=== PATIENT | female | born 1965 | race Caucasian/White ===

== ENCOUNTER → 2017-11-25 07:04 | Outpatient (CLI) | payer MEDICARE, SELFPAY ==
--- NOTE | 2017-11-25 07:05 | DI.MRI.S_ITS ---
PROCEDURE: MR CERVICAL SPINE WO CON INDICATIONS: left arm shooting pain, numbness, tingling - worsening TECHNIQUE: Noncontrast sagittal T1 spin echo and T2 fast spin echo, sagittal STIR, foraminal oblique sagittal T2 fast spin echo, and axial gradient echo or T2 fast spin echo through the cervical spine. In this patient, coronal T2-weighted images were also performed. COMPARISON: [facility], CT, SOFT TISSUE NECK W CONTRAST, 06/16/2017, 10:30. FINDINGS: Image quality: This examination is limited by involuntary motion artifact. Images are repeated, with some improvement. Alignment and Curvature: S-shaped scoliotic curvature is seen. Bone Marrow: Marrow demonstrates normal overall signal. Spinal Cord: Visualized spinal cord has normal size and signal. No cerebellar tonsillar herniation. Paraspinous Soft Tissues: No paravertebral masses. Prevertebral soft tissues are normal in thickness. C2-C3: Normal appearance. C3-C4: No significant abnormality is seen. C4-C5: Mild loss of disc height and disc signal are seen. A mild degree of generalized disc osteophyte complex is seen. Fltt-gr-hazyodjl facet hypertrophy is seen. Minimal bilateral neural foraminal narrowing is seen. Mild central canal narrowing is seen. C5-C6: Moderate loss of disc height is seen. Loss of disc signal is seen. Moderate disc osteophyte complex is seen, which is eccentric to the right. Wkpm-ec-mkrvfbtn facet hypertrophy is seen. There is at least moderate right-sided and moderate left-sided neural foraminal narrowing seen. C6-C7: Mild to moderate loss of disc height and disc signal are seen. Moderate disc osteophyte complex is seen, which is eccentric to the left. There is moderate left-sided and mild right-sided neural foraminal narrowing seen. Mild central canal narrowing is seen. C7-T1: No significant abnormality is seen. IMPRESSION: Multiple levels of cervical spine degenerative change are seen, which are overall most prominent at the C5-C6 level. Dictated by: Cameron Ordonez M.D. on 11/25/2017 at 9:02 Approved by: Cameron Ordonez M.D. on 11/25/2017 at 9:28
== END ==
PROVIDERS: PCP Family Medicine; Visit Provider Family Medicine
DX: M79.602 Pain in left arm (principal); R20.0 Anesthesia of skin; R20.2 Paresthesia of skin; M50.322 Other cervical disc degeneration at C5-C6 level
CPT/HCPCS: 72141

== ENCOUNTER 2018-01-24 08:11 | Outpatient (CLI) | payer MEDICARE, SELFPAY ==
[2018-01-24] VITALS (9 sets, daily range): BP systolic 102–199; BP diastolic 52–91; PULSE 66–73; RESP 10–18; TEMP 36.1; O2SAT 12–100
--- NOTE | 2018-01-24 08:13 | DI.RAD.S_ITS ---
PROCEDURE: PAIN C/T INTERLAMINAR INJECT INDICATIONS: HNP with LUE paresthesis FINDINGS: Fluoroscopic spot filming was performed to verify placement of spinal needles at the C6-7 level(s), as labeled on the films. Appropriate location(s) of the needle tip(s) was confirmed by injection of iodinated contrast. IMPRESSION: Intraoperative verification of needle placement at the C6-7 level Dictated by: Edmund Alvarado M.D. on 01/24/2018 at 13:13 Approved by: Edmund Alvarado M.D. on 01/24/2018 at 13:13
--- NOTE | 2018-01-24 09:05 | PM.PROC.1 ---
Procedures Date/Time Date of procedure: 01/24/18 Time of procedure: 09:05 General Procedure description: PREOP DIAGNOSIS 1. CERVICAL STENOSIS, 2. CERVICAL HNP WITH UPPER EXTREMITY RADICULAR FEATURES, POST OP DIAGNOSIS 1. CERVICAL STENOSIS, 2. CERVICAL HNP WITH UPPER EXTREMITY RADICULAR FEATURES, PROCEDURES 1. FLUORSCOPICALLY GUIDED CONTRAST CONTROLLED INTERLAMINAR EPIDURAL STEROID INJECTION - C6/7 TL JANKI PHYSICIAN: David Ferreira, DO INDICATIONS Flor is referred by Dr. Saxena for treatment of Cervical HNP with Upper Extremity Paresthesias. FINDINGS Cervical Stenosis due to disc deterioration and nerve root irritation and nerve root irritation DESCRIPTION OF PROCEDURE Fluoroscopically guided, contrast-controlled C6/7 translaminar epidural steroid injection with conscious sedation. Following denial of allergy and review of potential side effects and complications, including, but not necessarily limited to, infection, allergic reaction, local tissue breakdown, temporary as well as permanent nerve injury, stroke, paralysis, and possible , the patient indicated that patient understood and agreed to proceed. An informed consent document was signed by the patient, witnessed by a nurse, and placed in the patient's chart. Additionally, other treatment options including modalities, medications, and physical therapy were reviewed with the patient. After review of previous anaesthesic history and IV conscious sedation the patient was deemed safe to proceed with todays procedure with IV conscious sedation as ASA class II designation. Safety time-out was performed to confirm patient ID, procedure to be performed and site of procedure. IV sedation was accomplished with a combination of 3mg of Versed administered by the RN after DO order, titrated to patient comfort during the course of the procedure while the patient remained responsive to all verbal commands. In the prone position, following sterile prep and drape of the cervical region, the C6/7 translaminar space was identified fluoroscopically. The skin was anesthetized via a 25-gauge 1.5-inch needle with 1% lidocaine solution. At this point, a 25-gauge, 2.5-inch short bevel spinal needle was atraumatically introduced and advanced under fluoroscopic guidance into epidural space at the C6/7 translaminar space. Depth was confirmed on lateral view. Radiological data, including multiple fluoroscopic views of the cervical spine, reveal a spinal needle at the C6/7 translaminar space. Lateral views then show placement of the needle in the epidural space. Subsequent views show contrast material flowing superiorly and inferiorly in the epidural space. DSA fluoroscopy with live contrast injection, once again, confirmed no vascular or intrathecal uptake. At this point, using loss of resistance technique with saline and air, the epidural space was entered. Following negative aspiration, injection of approximately 1.5 cc of Isovue-200 with live fluoroscopy in the AP view confirmed epidural flow in the epidural space without vascular or intrathecal uptake observed. Subsequently, a test dose of 1 cc of 1% lidocaine solution was injected and patient was observed for two minutes without signs or symptoms of complications, including abdominal pain, shortness of breath, bilateral upper or lower extremity weakness, nausea and vomiting, prior to steroid injection. At this point, 3 cc or 30 mg of dexamethasone was then injected without incident. The patient tolerated the procedure well without signs or symptoms of complications prior to being transferred to the recovery area for further monitoring, The patient was then transferred to the recovery area where they were observed for an appropriate period of time after the injection. The patient reported a VAS score of 6 prior to the procedure and a post-procedure VAS of 0. Total Fluoroscopy Time: 37.0 seconds Total Conscious Time: 24min POST OP INSTRUCTIONS The patient was provided a Pain Log to continue to record their response to the target-specific procedure prior to follow-up visit with the referring provider. Additionally, specific post-injection care instructions and a contact number to our office were provided if concerns arise regarding possible complications associated with the procedure are suspected. David Ferreira, Complications: none
[2018-01-24] MEDS: IOPAMIDOL 15 ML VIAL 3 ML INJ (09:21)
[2018-01-24] MEDS: DEXAMETHASONE 10 MG/ML VIAL 30 MG INJ (09:22)
[2018-01-24] MEDS: LIDOCAINE 1% 30 ML INJ INJ (09:22)
[2018-01-24] MEDS: MIDAZOLAM 5 MG/5 ML VIAL IV (09:22)
--- NOTE | 2018-01-25 18:07 | PC.NURSE ---
Follow up call post procedure. left message as pt was not home or not answering.
== END 2018-01-24 10:19 | disposition home or self-care (01) ==
PROVIDERS: Family Provider Family Medicine; PCP Family Medicine; Visit Provider Physical Medicine & Rehabilitation
DX: M48.02 Spinal stenosis, cervical region (principal); M50.123 Cervical disc disorder at C6-C7 level with radiculopathy; M47.22 Other spondylosis with radiculopathy, cervical region
CPT/HCPCS: 62321; 99152; J1040; J1100; J2250

== ENCOUNTER → 2018-08-09 10:39 | Outpatient (CLI) | payer MEDICARE, SELFPAY ==
[2018-08-09 12:12] LABS: Add Manual Diff / Slide Review NO; Basophils Absolute Auto 0 /uL (0-100); Basophils Percent Auto 1.5 % (0-2); Eosinophils Absolute Auto 100 /uL (0-450); Eosinophils Percent Auto 2.4 % (2-4); Hematocrit 37.4 % (36-46); Hemoglobin 12.5 g/dL (12.0-16.0); Lymphocytes Absolute Auto 300 /uL (1100-4500); Mean Corpuscular HGB Conc 33.4 % (30-36); Mean Corpuscular Hemoglobin 33.1 PG (26-34); Mean Corpuscular Volume 98.9 fL (80-100); Monocytes Absolute Auto 300 /uL (0-900); Neutrophils Absolute Auto 1700 /uL (1500-7000); Neutrophils Percent Auto 73.1 % (50-75); Platelet Count 216 X10^3/uL (150-400); Red Blood Cell Count 3.78 X10^6/uL (4.0-5.2); Red Cell Distribution Width 14.2 % (11.6-14.8); White Blood Cell Count 2.3 X10^3/uL (4.5-11.0)
[2018-08-09 12:38] LABS: Alanine Aminotransferase 28 IU/L (9-52); Albumin 4.4 g/dL (3.5-5.0); Albumin Globulin Ratio 1.5 (1.0-2.8); Alkaline Phosphatase 105 U/L (38-126); Aspartate Aminotransferase 24 IU/L (14-36); BUN Creatinine Ratio 33.3 (6-22); Bilirubin Total 0.3 mg/dL (0.2-1.3); Blood Urea Nitrogen 20 mg/dL (7-17); Carbon Dioxide 28 mmol/L (22-32); Chloride 102 mmol/L (98-107); Cholesterol 227 mg/dL (140-199); Estimated Glomerular Filt Rate > 60.0 mL/min (>60); Glucose 84 mg/dL (70-100); HDL Cholesterol 85 mg/dL (40-60); HEMOLYSIS < 15 (0-50); LDL Cholesterol Calculated 125 mg/dL (<100); Potassium 4.1 mmol/L (3.4-5.1); Sodium 139 mmol/L (137-145); Total Protein 7.4 g/dL (6.3-8.2); Triglycerides 87 mg/dL (35-150)
== END ==
PROVIDERS: PCP Family Medicine; Visit Provider Family Medicine
DX: Z13.220 Encounter for screening for lipoid disorders (principal); Z85.850 Personal history of malignant neoplasm of thyroid; Z86.69 Personal history of other diseases of the nervous system and sense organs
CPT/HCPCS: 36415; 80053; 80061; 84443; 85025

== ENCOUNTER → 2018-08-16 09:19 | Outpatient (CLI) | payer MEDICARE, SELFPAY ==
[2018-08-16 09:43] LABS: Appearance Urine UA CLEAR; Bilirubin Urine UA NEGATIVE (NEGATIVE); Color Urine UA YELLOW; Glucose Urine UA NEGATIVE (Negative); Ketones Urine UA NEGATIVE (NEGATIVE); Leukocyte Esterase Urine UA NEGATIVE (NEGATIVE); Nitrite Urine UA NEGATIVE (Negative); Occult Blood Urine UA NEGATIVE (Negative); Protein Urine UA NEGATIVE (Negative); Specific Gravity Urine UA 1.025 (1.000-1.035); Urobilinogen Urine UA 0.2 E.U./dL (0.2); pH Urine UA 5.5 (4.5-8.0)
[2018-08-16 10:33] LABS: Bacteria Urine Few (2-10); RBC Urine 0-1/HPF (0-5/HPF); Squamous Epithelial Cell Urine 1-5 /HPF; WBC Urine 0-1/HPF (0-5/HPF)
[2018-08-16 10:34] LABS: Culture Indicated Urine Cult Not Indicated
[2018-08-16 10:41] LABS: Hemoglobin A1C% w Est Avg Glu 4.8 % (4.0-6.0)
== END ==
PROVIDERS: PCP Family Medicine; Visit Provider Orthopaedic Surgery
DX: N39.9 Disorder of urinary system, unspecified (principal); Z13.1 Encounter for screening for diabetes mellitus; Z01.818 Encounter for other preprocedural examination; Z01.812 Encounter for preprocedural laboratory examination
CPT/HCPCS: 36415; 81001; 83036; 93005; 93010

== ENCOUNTER 2018-10-19 05:05 | Inpatient (IN) | payer MEDICARE, SELFPAY ==
[2018-10-09 12:56] VITALS: BMI 29.0
[2018-10-19] VITALS (12 sets, daily range): BP systolic 83–129; BP diastolic 45–81; PULSE 66–77; RESP 9–19; TEMP 36.2–37; O2SAT 92–100; BMI 28.4
--- NOTE | 2018-10-19 | DI.RAD.S_ITS ---
PROCEDURE: XR HIP W PEL IF DONE RT 2V INDICATIONS: POST OPERATIVE TOTAL RIGHT HIP TECHNIQUE: AP pelvis and lateral view of the right hip acquired. COMPARISON: [facility], CR, [id number] W PEL IF PERFORMED, 11/04/2015, 12:14. FINDINGS: Bones: Patient is status post right hip arthroplasty, with hardware components in expected positions. The hip joint appears congruent. The visualized bony structures appear intact. Soft tissues: Overlying postoperative changes are noted. No suspicious soft tissue densities. IMPRESSION: Expected postoperative appearance Dictated by: Dimas Coronado M.D. on 10/19/2018 at 13:00 Approved by: Dimas Coronado M.D. on 10/19/2018 at 13:01
--- NOTE | 2018-10-19 06:00 | DI.RAD.S_ITS ---
PROCEDURE: XR PELVIS 1-2V INDICATIONS: right interoperative hip TECHNIQUE: Intra-operative view of the pelvis and hip acquired. COMPARISON: None. FINDINGS: Bones: Intraoperative devices prior to placement of arthroplasty prostheses are in expected positions. No fractures or suspicious bony lesions. Soft tissues: Overlying surgical retractors are present, along with other intraoperative changes. IMPRESSION: Expected alignment of hip prosthesis. Dictated by: Kelly Weldon M.D. on 10/19/2018 at 13:41 Approved by: Kelly Weldon M.D. on 10/19/2018 at 13:41
[2018-10-19] MEDS: ACETAMINOPHEN 325 MG TABLET 975 MG PO ×3 (06:53→20:24)
[2018-10-19] MEDS: PREGABALIN 75 MG CAPSULE PO (06:53)
[2018-10-19] MEDS: CELECOXIB 200 MG CAPSULE PO (06:53)
[2018-10-19] MEDS: LACTATED RINGERS 1,000 ML 42 ML IV ×2 (07:15→11:47)
[2018-10-19] MEDS: VANCOMYCIN 1,000 MG/200 ML FROZ.PIGGY 200 MG IV (07:18)
--- NOTE | 2018-10-19 07:47 | SUR.PREOP ---
pt reports she tripped on the sidewalk this morning prior to arriving for surgery. pt reports she fell onto her bottom and reports no injury. This RN observed pt and no bruising or abrasion noted on her bottom. Reported this to MD Araiza.
--- NOTE | 2018-10-19 07:52 | PM.PREOP ---
Pre-operative Note Interval Note History & Physical reviewed/Exam performed by Physician: Yes Changes to H&P: Yes
--- NOTE | 2018-10-19 07:53 | PM.OP.1 ---
Operative Date/Time/Diagnoses Date of procedure: 10/19/18 Time of procedure: 07:53 Pre-op diagnosis: right hip OA Post-op diagnosis: same Procedure & Clinicians Procedure: right total hip arthroplasty Same procedure as scheduled: Yes Indications: The patient has had progressively worsening right hip pain with radiographic changes consistent with arthritis. Non-operative management has failed and the patient has requested total hip replacement. The risks, benefits and alternatives to surgery were discussed with the patient prior to proceeding. Risks discussed included, but were not limited to, failure to relieve pain, leg length discrepancy, dislocation, stiffness, infection, nerve damage, deep venous thrombosis, pulmonary embolism, stroke, coma, heart attack, permanent paralysis and , as well as the potential need for eventual revision of the prosthetic. Surgeon: Wendy Eric Baler Operator: Lea Strickland Anesthesia Type: General and Spinal Operative Notes Findings: severe right hip OA, adequate stability, fairly flat acetabular but good stability with cup positioning Closure Type: primary Specimen(s): none sent Prosthetic devices, grafts, tissues, transplants, or devices: [employer]hew 58 mm R3 cup, 16.5 x 20 screw, 36+ 0 head, size 7 standard offset anthology Applied: catheter and drain(s) Estimated Blood Loss (mL): 250 Blood products transfused: none Procedure in detail: The patient was seen in the pre-operative area, where the patient identified the right hip as the operative site and this was marked with my initials. The patient received pre-operative antibiotics and was taken to the operating room and placed on the operative table in the left lateral decubitus position after satisfactory anesthesia. A multimedia services manager out was performed. The right leg was prepared from the ankle to the iliac crest with ChloroPrep in the usual fashion and draped through sterile drapes. The hip was approached through an approximately 20 cm incision centered over the greater trochanter and curving gently posteriorly as it went proximally. This was carried sharply to the fascia thong, which was divided and retracted with a self retaining retractor. The trochanteric bursa was excised with care being taken to avoid the sciatic nerve, which was identified and protected throughout the case. The short external rotators were incised and the capsulomuscular flap was raised and tagged for later repair. The hip was dislocated, and a femoral neck osteotomy performed approximately 15 mm above the lesser trochanter. Retractors were placed around the femur. The canal was opened with a box cutting osteotome, followed by a T handled reamer and a lateralizing reamer. The chili pepper broach was then used, followed by sequential broaching until there was good stability of the broach in the femur. Retractors were placed to expose the acetabulum. The labrum and central soft tissues were removed. Reaming was performed initially going up in 2 mm increments, then 1 mm increments until good bite was obtained with an odd sized reamer. The cup 1 mm larger than the last reamer was then inserted using the appropriate anteversion guides. She had a fairly flat acetabulum with some uncoverage laterally and posteriorly. acetabular fixation was supplemented with a screw. A trial neutral liner was placed. The broach was placed in the canal. A trial head and neck were then placed and the hip relocated and checked for leg length and stability. An intraoperative film confirmed the component position and no evidence of fracture. The patient was stable in the position of sleep, of squatting, and could be put through a range of motion with 45 degrees internal rotation without dislocation. At 90 degrees flexion, internal rotation to 70 was possible before dislocation. This was felt to be satisfactory and the appropriate components were opened, and the trials were removed. The acetabular liner was impacted into position. The final stem was then impacted into the prepared femoral canal. A brief Betadine soak was performed while trialing with head options. The hip was meticulously irrigated with normal saline. Finally the femoral head was impacted onto the stem. The acetabulum was cleared of all material and the hip relocated one final time. The capsulomuscular flap was then repaired to the greater trochanter though an awl hole using the tag sutures. The short external rotators were repaired with a nonabsorbable suture. A deep drain was placed and brought out anteriorly. The fascia thong was closed with Vicryl. The subcutaneous layer was closed with barbed sutures and heena. An Aquacel Ag dressing was applied and the patient was taken to recovery having tolerated the procedure well. Complications: none Condition: stable Disposition: Acute Care Plan for aftercare: The patient will be maintained on a standard total hip replacement protocol with weight bearing as tolerated and posterior hip precautions. The patient will receive Aspirin and sequential compression devices for DVT prophylaxis. The patient will be discharged home when safe for the home environment.
[2018-10-19] MEDS: CEFAZOLIN 2 GM/100 ML FROZ.PIGGY IV ×2 (08:20→16:01)
--- NOTE | 2018-10-19 09:00 | SUR.OPER ---
Lateral on padded OR bed. Gel axillary roll. Arms secured on padded armboard with pillow supporting top arm. Padded hip positioner braces x4 - anterior and posterior chest and pelvis. Additional gel pad used anterior pelvis. Gel pad under bottom leg from knee to foot and secured with tape over sheet.
[2018-10-19] MEDS: BUPIVACAINE 0.25% W/ EPI 30 ML VIAL 60 ML INJ (09:08)
[2018-10-19] MEDS: BUPIVACAINE LIPOSOME 266 MG/20 ML VIAL INJ (09:08)
[2018-10-19] MEDS: EPINEPHrine 1 MG/ML AMPUL IRR (09:14)
[2018-10-19] MEDS: POVIDONE-IODINE 15 ML, SODIUM CHLORIDE 0.9% 250 ML TOP (09:14)
--- NOTE | 2018-10-19 11:19 | SUR.PHASEI ---
griselda dressing in place and functioning with green light. hemavac drain intact.
--- NOTE | 2018-10-19 11:21 | SUR.PHASEI ---
bedside report given to Grant Flowers RN and transferred care of pt to Kristie at this time.
[2018-10-19] MEDS: LACTATED RINGERS 1,000 ML 125 ML IV ×2 (12:26→20:38)
[2018-10-19] MEDS: carBAMazepine 200 MG TABLET 400 MG PO (12:32)
[2018-10-19] MEDS: OXYCODONE IR 5 MG TABLET PO ×2 (13:33→20:31)
--- NOTE | 2018-10-19 14:45 | PT.IIE ---
Current Diagnoses Unilateral primary osteoarthritis, right hip (10/19/18) Surgery Performed Operation Date: 10/19/18 07:45 Actual Procedures p Total Hip Arthroplasty Posterior(Right) - Wendy Eric MD Surgical History (Last Updated 10/09/18 @ 13:27 by Kimberly Oneill, RN) H/O right wrist surgery (Acute ~2012) History of arthroplasty of right knee (Acute) History of total left hip arthroplasty (Acute) Hx of partial adrenalectomy (Acute ~12/2005) S/P colon resection (Acute) Status post delivery Medical History (Last Updated 10/09/18 @ 13:41 by Kimberly Oneill, RN) Leukocytopenia, unspecified (Acute) Meningitis (Acute) Sigmoid volvulus (Acute) Thyroid cancer (Acute) Physical Therapy Inpatient Evaluation/Re-Eval M1 PT/OT-IP Prior Functional Status Start: 10/19/18 16:54 Freq: NEEDED Status: Active Protocol: Document 10/19/18 14:45 AB (Rec: 10/19/18 17:07 AB [id number]) Medical Review Prior Functional Status Medical History Reviewed Yes Communication able to make needs known Mobility and Gait pt stated that she is modified independent with all mobilities and ambulation without AD Social History Household Members spouse family Living Arrangements House Number of Floors (Floors) One Floor Number of Stairs To Enter/Railing? pt with stay at her sister's house and he sister will assist her because her spouse goes to work. home information is regarding pt's sister's house: 2 steps to enter without rails Home Environment Standard Height Toilet Tub/Shower Home Equipment Front Wheel Walker Quad Cane Shower Seat with Backrest M2 PT-IP Current Condition Start: 10/19/18 16:54 Freq: NEEDED Status: Active Protocol: Document 10/19/18 14:45 AB (Rec: 10/19/18 17:07 AB [id number]) Physical Therapy Current Condition Current Condition Evaluation Date 10/19/18 Treatment Diagnosis s/p R TIFFANIE posterior approach; difficulty in walking Onset Date 10/19/18 Precautions Posterior Hip Precautions No Hip Flexion > 90 degrees No Hip Internal Rotation No Hip Adduction Weight Bearing Status Weight Bearing Status Weight Bear as Tolerated M3 PT-IP Subjective Start: 10/19/18 16:54 Freq: NEEDED Status: Active Protocol: Document 10/19/18 14:45 AB (Rec: 10/19/18 17:07 AB [id number]) Subjective Physical Therapy Visit Type Type Initial Evaluation Visit Start Time 14:45 Visit Stop Time 15:32 Total Visit Minutes 47 Number of EMERGENCY CARE ATTENDANT Visits 0 Physical Therapy Visit Comments Patient Comments per nurse: pt wants to get up Therapy Pain Assessment Pain When Pain Assessed At Rest Pain Present Pain Present Pain Reported Location Right Hip Intensity 5 Scale Used Numeric (1 - 10) Pain Management Techniques Apply Cold Re-positioning Timing of Activity with Medications M4 PT-IP Mobility and Gait Start: 10/19/18 16:54 Freq: NEEDED Status: Active Protocol: Document 10/19/18 14:45 AB (Rec: 10/19/18 17:07 AB [id number]) PT-Bed Mobility Assessment Supine to Sit Supine to Sit Standby Assistance Scooting Scooting to Edge of Bed Standby Assistance PT-Transfer Assessment Sit to and From Stand Sit to and from Stand Minimal Assistance 1 Person Assistance Use of Upper Extremities Equipment Transfer Assistive Device Gait Belt Front Wheeled Walker Orthotic/Prosthetic Devices or Brace: No Transfers Transfer Destination Chair Transfer Technique pt ambulated to the chair Transfer Ability Level of Assist Minimal Assistance 1 Person Assistance Use of Upper Extremities Comments Mobility Comments pt with decrease safety awareness and needs frequent cues for instruction and to maintain R hip posterior precautions. Gait Assessment Gait Gait Assistance Required: Minimum Assistance Distance (Feet) 15 Able to Maintain Weight Bearing Status Yes During Gait Assistive Devices Assistive Device Gait Belt Front Wheeled Walker Orthotic/Prosthetic Devices or Brace: No Gait Deviations General Gait Pattern Antalgic Decreased Stride Length Decreased Feet Clearance Factors Limiting Gait Function Factors Limiting Gait Function Decreased Activity Tolerance Decreased Strength Pain Poor Balance Poor Safety Awareness PT-Balance Assessment Sitting Balance and Reactions Static Sitting Balance Ability Good Dynamic Sitting Balance Ability Good Standing Balance and Reactions Static Standing Balance Ability Fair Dynamic Standing Balance Ability Fair Device Used FWW M5 PT-IP Objective Assessments Start: 10/19/18 16:54 Freq: NEEDED Status: Active Protocol: Document 10/19/18 14:45 AB (Rec: 10/19/18 17:07 AB [id number]) Orientation Orientation/Cognition Level of Alertness Alert Safety Awareness Decreased Safety Awareness Memory Description Short Term Impaired Assisted Impaired Gross Range of Motion Lower Extremity ROM Assessment Within Functional Limits Strength Lower Extremity Strength Assessment Right Impaired Hip 4-/5 Knee 4-/5 Sensation Assessment Sensation Gross Sensation WNL Muscle Tone Muscle Tone WNL Yes M6 PT-IP Treatment Start: 10/19/18 16:54 Freq: NEEDED Status: Active Protocol: Document 10/19/18 14:45 AB (Rec: 10/19/18 17:07 AB [id number]) Physical Therapy Treatment Education Education Provided Precautions Weight Bearing Status Post-Op Packet Safety Other Treatments Other Treatment Performed educated pt regarding R posterior hip precautions and continues to require assistance to recall. M7 PT-IP Assessment and Plan Start: 10/19/18 16:54 Freq: NEEDED Status: Active Protocol: Document 10/19/18 14:45 AB (Rec: 10/19/18 17:07 AB [id number]) PT Summary Assessment and Plan Potential Rehabilitation Potential Fair Status of Condition at Evaluation Stable Summary Impairments Pain ROM Strength Balance Coordination Sensation Tone Cognition Bed Mobility Transfers Gait Activity Tolerance Assessment Summary pt requiring min A with mobility and plans to go home with her sister to assist her. will conduct caregiver training when appropriate and also complete stair climbing training. d/c plan depending if caregiver will be able to provide necessary assistance and also pt be able to complete stairs. Goals Bed Mobility Goal Independent Transfer Goal Standby Assistance Front Wheeled Walker Gait Goal Standby Assistance Front Wheel Walker Gait Distance 150 Other Goals up/down 2 steps using quad cane/DEPLOYMENT ENGINEER Days to Meet Goals 3 Frequency of Treatment Frequency Of Treatment Twice a Day Treatment Plan Physical Therapy Treatment Plan Bed Mobility Training Transfer Training Gait Training Therapeutic Exercise Balance Retraining Post Op Education Discharge Planning Hot or Cold Pack Neuromuscular Re-ed Coordination Retraining Manual Therapy Recommendations To Nursing Amount of Assist Needed 1 Person Assist Discharge Recommendations PT Discharge Recommendations Home with 10/01 Assist Outpatient PT
--- NOTE | 2018-10-19 15:17 | PC.ADMIT ---
[address] [place] [address] Admission Note: The patient,Flor De Leon,53 y/o, was given written information regarding hospital policies, unit procedures and contact persons. Patient's smoking status: Former smoker. Vital Signs - 8 hr 10/19/18 11:11 10/19/18 11:16 10/19/18 11:21 Temperature 97.1 F L Pulse Rate 71 73 71 Respiratory Rate 9 L 11 L 10 L Blood Pressure 101/62 98/67 83/45 L Pulse Oximetry 100 100 100 10/19/18 11:26 10/19/18 11:36 10/19/18 11:46 Temperature 98.6 F 98.6 F Pulse Rate 68 66 66 Respiratory Rate 12 12 13 Blood Pressure 106/68 109/61 104/63 Pulse Oximetry 99 100 100 10/19/18 12:00 10/19/18 12:14 10/19/18 12:30 Temperature 98.0 F 98.0 F Pulse Rate 77 72 Respiratory Rate 14 15 Blood Pressure 122/72 102/57 L Pulse Oximetry 92 96 96 PATIENT ADMITTED TO [address] EARLIER THIS AFTERNOON. DENIED PAIN, HV PATENT AND COMPRESSED, PATRICK DRSG CDI AND FUNCTIONING. NO N/V. PATIENT ATE LUNCH, TOLERATED WELL. AT APPROX 1430 PATIENT BECAME VERY RESTLESS, WANTED OUT OF BED. ADMITTED SHE MAY BE FEELING ANXIOUS. I;M JUST DETERMINED TO GET OUT OF THIS BED. SAT 100% ON RA. CALLED PHYSICAL THERAPY WHO ARE IN W/ PATIENT AT THIS TIME. REPORT GIVEN TO SHENA QUAN RN.
[2018-10-19] MEDS: carBAMazepine 200 MG TABLET 600 MG PO (20:23)
[2018-10-19] MEDS: DOCUSATE 100 MG CAPSULE PO (20:24)
[2018-10-19] MEDS: ASPIRIN EC 81 MG TABLET PO (20:24)
[2018-10-19] MEDS: LORazepam 0.5 MG TABLET 0.25 MG PO (20:35)
[2018-10-20 00:15] VITALS: BP 113/65; PULSE 75; RESP 16; TEMP 36.8; O2SAT 98
[2018-10-20] MEDS: CEFAZOLIN 2 GM/100 ML FROZ.PIGGY IV (00:25)
[2018-10-20] MEDS: OXYCODONE IR 5 MG TABLET PO ×3 (00:32→08:19)
[2018-10-20 05:13] VITALS: BP 133/61; PULSE 79; RESP 18; TEMP 36.6; O2SAT 98
[2018-10-20 07:30] VITALS: BP 111/72; PULSE 80; RESP 17; TEMP 36.6; O2SAT 99
--- NOTE | 2018-10-20 08:01 | PM.DS.1 ---
History of Present Illness Date Patient Seen: 10/20/18 Chief complaint: [id number] Narrative: Patient seen bedside status post right total hip arthroplasty by Dr. Eric postop day 1. Patient is doing well, pain is well controlled. She would like to go home today. Discharge Providers Date of admission: 10/19/18 05:05 Discharge Date: 10/20/18 Primary care physician: Zachariah Saxena MD Consults: 10/19/18 06:00 Consult to Anesthesiology Routine Comment: Consulting Provider: Anesthesiologist Reason for consultation: Regional block for post operative pain control Has provider been notified: Yes 10/19/18 12:07 Consult to Discharge Planning Routine Comment: Consult to Physical Therapy Evaluate & Treat Comment: Physician Instructions: post op TIFFANIE protocol Consult to Respiratory Therapy Evaluate & Treat Comment: Physician Instructions: Evaluate and treat Discharge provider: Lea Strickland PA-C Summary Discharge Diagnosis: Right hip osteoarthritis Hospital Course: Patient admitted to the hospital status post right posterior total hip arthroplasty by Dr. Eric on 10/19/2018. Patient tolerated the procedure well with no major complications. They were transferred to the acute care floor where they were placed on the standard joint replacement pathway and protocol. They were seen by physical therapy who recommended that they be discharged home. They were stable and ready for discharge on 10/20/2018 Status at Discharge Cognitive/behavioral status at discharge: oriented Functional status at discharge: uses cane/walker Overall status at discharge: patient is progressing back to baseline Time Spent with Patient Less than 30 minutes Exam Vital Signs (past 8 hours): - 10/20/18 00:15 10/20/18 05:13 Temperature 98.3 F 97.9 F Pulse Rate 75 79 Respiratory Rate 16 18 Blood Pressure 113/65 133/61 Pulse Oximetry 98 98 Oxygen Delivery Method Room Air Oxygen Flow Rate 0 Narrative Exam Narrative: Well-developed, well-nourished, no acute distress. Alert and oriented to person, place, and time. Dressing on operative hip is clean, dry, and intact with no signs of drainage. Minimal erythema and generalized swelling around the surgical site. Neurovascularly intact in the operative extremity with a soft and compressible calf. Range of motion of the operative ankle intact. Objective Labs Result Diagrams: 10/20/18 07:46 Discharge Plan Discharge Plan Patient Disposition: Home Discharge Med Rec/Prescriptions Prescriptions: New acetaminophen 325 mg Tablet 975 mg PO TID Qty: 0 RF: 0 docusate sodium 100 mg Capsule 100 mg PO BID Qty: 0 RF: 0 oxycodone 5 mg Tablet 5 mg PO Q4-6H PRN (Reason: Pain, Moderate (4-6)) Qty: 0 RF: 0 Continued levothyroxine 150 mcg tablet 150 mcg PO DAILY Qty: 90 RF: 3 carbamazepine 200 mg tablet See Rx Instructions PO .COMPLEX Qty: 210 RF: 0 aspirin 325 mg tablet 325 mg PO DAILY RF: 0 barbara (Zingiber officinalis) 550 mg capsule 550 mg PO DAILY RF: 0 lorazepam 0.5 mg tablet See Rx Instructions .ROUTE .COMPLEX Qty: 30 RF: 0 methylprednisolone acetate [Depo-Medrol] 80 mg/mL suspension 80 mg IM ONCE Qty: 1 RF: 0 celecoxib [Celebrex] 200 mg capsule 200 mg PO DAILY Qty: 90 RF: 2 Follow up/Referrals: Wendy Eric MD [Physician] - (Follow up in 5-7 days at your previously scheduled post-op appointment.) Provider Discharge Instructions Diet: Diet as Tolerated Activity: Weight bearing as tolerated follow-up posterior hip precautions, use walker until cleared by the physical therapy Cold/Heat Therapy: Apply ice to affected area for 20 minutes at a time at least hourly while awake. Other treatments: Please refer to [facility] path book for any other questions and concerns Skin/Wound/Dressing Care Report to your healthcare provider any signs of infection, such as:: chills, fever, night sweats, increased pain and unusual drainage Dressing: Keep dressing clean, dry, and intact. May shower with it in place but no soaking. Visit Report/Discharge Packet Instructions: DI for Hip Replacement Stand Alone Forms: Surgery Discharge Discharge Data Primary Care Provider: Zachariah Saxena Attending Provider: Wendy Eric Admit Date/Time: 10/19/18 05:05 Quality VTE Deep Vein Thrombosis/Pulmonary Embolism Present on Admission: No
[2018-10-20] MEDS: LEVOTHYROXINE 150 MCG TABLET PO (08:17)
[2018-10-20] MEDS: ASPIRIN EC 81 MG TABLET PO (08:17)
[2018-10-20] MEDS: DOCUSATE 100 MG CAPSULE PO (08:18)
[2018-10-20] MEDS: carBAMazepine 200 MG TABLET 400 MG PO (08:18)
[2018-10-20] MEDS: ACETAMINOPHEN 325 MG TABLET 975 MG PO (08:18)
[2018-10-20] MEDS: CELECOXIB 200 MG CAPSULE PO (08:19)
[2018-10-20 08:24] LABS: Hematocrit 33.4 % (36-46); Hemoglobin 11.5 g/dL (12.0-16.0)
--- NOTE | 2018-10-20 10:10 | PT.IPTN ---
Current Diagnoses Unilateral primary osteoarthritis, right hip (10/19/18) Surgery Performed Operation Date: 10/19/18 07:45 Actual Procedures p Total Hip Arthroplasty Posterior(Right) - Wendy Eric MD Physical Therapy Treatment Note M2 PT-IP Current Condition Start: 10/19/18 16:54 Freq: NEEDED Status: Active Protocol: Document 10/19/18 14:45 AB (Rec: 10/19/18 17:07 AB [id number]) Physical Therapy Current Condition Current Condition Evaluation Date 10/19/18 Treatment Diagnosis s/p R TIFFANIE posterior approach; difficulty in walking Onset Date 10/19/18 Precautions Posterior Hip Precautions No Hip Flexion > 90 degrees No Hip Internal Rotation No Hip Adduction Weight Bearing Status Weight Bearing Status Weight Bear as Tolerated M3 PT-IP Subjective Start: 10/19/18 16:54 Freq: NEEDED Status: Active Protocol: Document 10/20/18 09:15 LJ (Rec: 10/20/18 10:10 LJ [id number]) Subjective Physical Therapy Visit Type Type Treatment Note Visit Start Time 09:15 Visit Stop Time 09:52 Total Visit Minutes 37 Physical Therapy Visit Comments Patient Comments Pt willing to get up and ambulate Therapy Pain Assessment Pain When Pain Assessed At Rest Pain Present Pain Present Pain Reported M4 PT-IP Mobility and Gait Start: 10/19/18 16:54 Freq: NEEDED Status: Active Protocol: Document 10/20/18 09:15 LJ (Rec: 10/20/18 10:10 LJ [id number]) PT-Bed Mobility Assessment Supine to Sit Supine to Sit Standby Assistance Scooting Scooting to Edge of Bed Standby Assistance PT-Transfer Assessment Sit to and From Stand Sit to and from Stand Standby Assistance Use of Upper Extremities Equipment Transfer Assistive Device Gait Belt Front Wheeled Walker Transfers Transfer Destination Bed Toilet Wheelchair Transfer Technique Stand Step Pivot Transfer Ability Level of Assist Standby Assistance Use of Upper Extremities Comments Mobility Comments Pt SBA for all mobility. Demonstrates adhereance to precautions. Pt moves slowly and cautiously with transfers. Able to get into/out of bed R side indep. Pt transfered from bed to WC to toilet to bed always adhering to precautions. Gait Assessment Gait Gait Assistance Required: Standby Assistance Contact Guard Assist Distance (Feet) 175 Able to Maintain Weight Bearing Status Yes During Gait Assistive Devices Assistive Device Gait Belt Front Wheeled Walker Orthotic/Prosthetic Devices or Brace: No Gait Deviations General Gait Pattern Antalgic Decreased Stride Length Decreased Feet Clearance Factors Limiting Gait Function Factors Limiting Gait Function Decreased Activity Tolerance Decreased Strength Pain Poor Balance Poor Safety Awareness Stair Climbing Assessment Evaluation Level of Assist On Stairs Standby Assistance Contact Guard Assistance Devices Stair Climbing Assistive Devices None Technique/Endurance Stair Climbing Direction Ascend and Descend Stair Climbing Technique Step to Step Number of Steps Climbed 3 Query Text: Stair Climbing Set # Repetitions (reps) 2 Comments Stair Climbing Comments Pt adhered to precautions and demonstrated good mobility on stairs. Understands step-to pattern and RLE placement when turning and ascending/ descending M5 PT-IP Objective Assessments Start: 10/19/18 16:54 Freq: NEEDED Status: Active Protocol: Document 10/19/18 14:45 AB (Rec: 10/19/18 17:07 AB [id number]) Orientation Orientation/Cognition Level of Alertness Alert Safety Awareness Decreased Safety Awareness Memory Description Short Term Impaired Fpc Impaired Gross Range of Motion Lower Extremity ROM Assessment Within Functional Limits Strength Lower Extremity Strength Assessment Right Impaired Hip 4-/5 Knee 4-/5 Sensation Assessment Sensation Gross Sensation WNL Muscle Tone Muscle Tone WNL Yes M6 PT-IP Treatment Start: 10/19/18 16:54 Freq: NEEDED Status: Active Protocol: Document 10/19/18 14:45 AB (Rec: 10/19/18 17:07 AB [id number]) Physical Therapy Treatment Education Education Provided Precautions Weight Bearing Status Post-Op Packet Safety Other Treatments Other Treatment Performed educated pt regarding R posterior hip precautions and continues to require assistance to recall. M7 PT-IP Assessment and Plan Start: 10/19/18 16:54 Freq: NEEDED Status: Active Protocol: Document 10/20/18 09:15 LJ (Rec: 10/20/18 10:10 LJ [id number]) PT Summary Assessment and Plan Potential Rehabilitation Potential Fair Status of Condition at Evaluation Stable Summary Impairments Pain ROM Strength Balance Coordination Sensation Tone Cognition Bed Mobility Transfers Gait Activity Tolerance Assessment Summary Pt demonstrates SBA for bed mobility, transfers, ambulation, and stair use adhering to precautions. Pt also able to recall all precautions. Pt has improved gait distance and is normalizing with weight shifting and heel strike. Step distance also normalizing. Safe use of FWW. Pt is safe to D/C home with assistance. Goals Bed Mobility Goal Independent Transfer Goal Standby Assistance Front Wheeled Walker Gait Goal Standby Assistance Front Wheel Walker Gait Distance 150 Other Goals up/down 2 steps using quad cane/[employer] Days to Meet Goals 3 Frequency of Treatment Frequency Of Treatment Twice a Day Treatment Plan Physical Therapy Treatment Plan Bed Mobility Training Transfer Training Gait Training Therapeutic Exercise Balance Retraining Post Op Education Discharge Planning Hot or Cold Pack Neuromuscular Re-ed Coordination Retraining Manual Therapy Recommendations To Nursing Amount of Assist Needed 1 Person Assist Discharge Recommendations PT Discharge Recommendations Home with 10/01 Assist Outpatient PT
[2018-10-20] MEDS: LORazepam 0.5 MG TABLET 0.25 MG PO (10:41)
--- NOTE | 2018-10-20 13:01 | PC.NURSE ---
LATE ENTRY; IV DC'D INTACT W/ PRESSURE TO HEMOSTASIS PRIOR TO DC HOME W/ SISTER. HV ALSO DC'D INTACT W/ PRESSURE TO HEMOSTASIS PRIOR TO DC HOME. 50CC'S EMPTIED.
--- NOTE | 2018-10-21 08:26 | CM.DPNOTE ---
Late Entry: Pt is a 53 yo female, resident of [place]. Pt was admitted for hip surgery w/Dr Eric and DC home .09.05. PCP: Dr Saxena Payer: Medicare Pt discussed in multi-disciplinary rounds .09.05, therapy team and PA indicated there would be no barriers to pt's safe return home w/outpt PT and family to assist. No needs from this [employer]. Pt returned home as expected. According to PT notes: pt with stay at her sister's house and he sister will assist her because her spouse goes to work. Nicole Astudillo, [employer]
== END 2018-10-20 11:30 | disposition home or self-care (01) | DRG 470 ==
PROVIDERS: Admitting Provider Orthopaedic Surgery; PCP Family Medicine; Visit Provider Orthopaedic Surgery
PROC: 0SR90JZ Replacement of Right Hip Joint with Synthetic Substitute, Open Approach (ICD-10-PCS; CPT 27130; principal; 2018-10-19 07:45)
DX: M16.11 Unilateral primary osteoarthritis, right hip (principal); G40.909 Epilepsy, unspecified, not intractable, without status epilepticus; Z96.642 Presence of left artificial hip joint; Z87.891 Personal history of nicotine dependence
CPT/HCPCS: 36415; 72170; 73502; 85014; 85018; 97116; 97161; 97530; C1776; C9290; J0171; J0690; J1100; J2250; J2405; J2704; J3010; J3370

== ENCOUNTER 2018-10-27 10:19 | Emergency (ER) | payer MEDICARE, SELFPAY ==
[2018-10-19 12:14] VITALS: BMI 28.4
[2018-10-27 10:22] VITALS: BP 128/80; PULSE 85; RESP 18; TEMP 36.6; O2SAT 98
--- NOTE | 2018-10-27 10:35 | DI.US.S_ITS ---
PROCEDURE: US PERIPH VENOUS LOW EXTREM RT INDICATIONS: PAIN, SWELLING RIGHT LOWER EXTREMITY, STATUS POST RIGHT HIP TECHNIQUE: Real-time imaging, as well as color and pulse Doppler interrogation, were performed of the lower extremity deep veins from the inguinal ligament to the popliteal fossa. COMPARISON: None. FINDINGS: The common femoral, femoral and popliteal veins are normally compressible, and free of intraluminal thrombus. Color and pulse Doppler demonstrate normal phasic intraluminal flow. There is normal augmentation response to distal compression maneuver. Mild right inguinal adenopathy. IMPRESSION: Negative for deep vein thrombosis. Dictated by: Angella Henderson M.D. on 10/27/2018 at 11:55 Approved by: Angella Henderson M.D. on 10/27/2018 at 11:55
--- NOTE | 2018-10-27 10:45 | PC.NURSE ---
US tech in room with patient
--- NOTE | 2018-10-27 19:09 | ED_ITS ---
HPI - Extremity Problem General Chief complaint: Extremity Problem,Nontraumatic Stated complaint: 'MEDICAL BOX NOT WORKING' Time Seen by Provider: 10/27/18 10:27 Source: patient and family Mode of arrival: ambulatory Limitations: no limitations History of Present Illness HPI Narrative: 53-year-old female nonsmoker presents with her for evaluation of a malfunctioning orthopedic device. The patient was recently taken to the OR for surgical repair of an arthritic right hip and as part of discharge she was given a small wound device with an external ?brain? period the device was no longer turning on today and after the patient replace the batteries it still did not turn on she presents to the emergency department for evaluation. She did not call the orthopedic office. She denies any fever or chills nor drainage. She denies any worsening pain. On arrival it is noted that she has some swelling of her right lower extremity and though she denies any pain redness or warmth MD Complaint: extremity swelling Location: right Radiation: none Relieving factors: nothing Exacerbating factors: nothing Associated symptoms: denies other symptoms Context: recent surgery/procedure Related Data Home Medications Medication Instructions Recorded Confirmed aspirin 325 mg tablet 325 mg PO DAILY 12/15/17 10/19/18 barbara (Zingiber officinalis) 550 550 mg PO DAILY 12/15/17 10/19/18 mg capsule carbamazepine 400 mg PO BID 10/27/18 10/27/18 carbamazepine 600 mg PO BEDTIME 10/27/18 10/27/18 Previous Rx's Medication Instructions Recorded celecoxib 200 mg capsule 200 mg PO DAILY #90 cap 07/27/18 levothyroxine 150 mcg tablet 150 mcg PO DAILY #90 tab 08/10/18 acetaminophen 975 mg PO TID #0 tab 10/20/18 docusate sodium 100 mg PO BID #0 cap 10/20/18 oxycodone 5 mg PO Q4-6H PRN #0 tab 10/20/18 Allergies Allergy/AdvReac Type Severity Reaction Status Date / Time Influenza Virus Vaccines Allergy Intermediate vomiting Verified 10/27/18 10:27 [INFLUENZA VIRUS VACCINES] morphine [MORPHINE] Allergy Unknown GI UPSET Verified 10/27/18 10:27 Review of Systems Constitutional Denies chills, Denies fever(s), Denies lethargy and Denies weakness Eyes Denies change in vision, Denies eye discharge, Denies irritation and Denies loss of vision ENT Ears, Nose, Mouth, and Throat: Denies change in voice, Denies neck pain and Denies sore throat Cardiovascular Denies chest pain, Denies irregular heart rhythm, Denies lightheadedness, Denies palpitations, Denies dyspnea, Denies dyspnea on exertion and Denies orthopnea Respiratory Denies cough, Denies dyspnea, Denies dyspnea on exertion and Denies wheezing Gastrointestinal Gastrointestinal: Denies abdominal pain, Denies change in bowel habits, Denies diarrhea, Denies nausea and Denies vomiting Genitourinary Denies hematuria, Denies flank pain, Denies urinary incontinence and Denies urinary urgency Musculoskeletal Reports joint swelling, Reports limited range of motion and Denies neck pain Integumentary/Breasts Denies pruritus, Denies erythema, Denies rash and Denies wounds Neurologic Denies confusion, Denies loss of vision and Denies weakness Psychiatric Denies anxiety, Denies confusion, Denies depression, Denies homicidal ideation and Denies suicidal ideation Endocrine Denies palpitations Hematologic/Lymphatic Denies easy bruising Allergic/Immunologic Denies wheezing [facility] Medical History Leukocytopenia, unspecified (Acute) Meningitis (Acute) Sigmoid volvulus (Acute) Thyroid cancer (Acute) Surgical History H/O right wrist surgery (Acute ~2012) History of arthroplasty of right knee (Acute) History of total left hip arthroplasty (Acute) Hx of partial adrenalectomy (Acute ~12/2005) S/P colon resection (Acute) Status post delivery Social History household members: spouse and family Smoking Status: Former smoker Social History household members: spouse and family Smoking Status: Former smoker Exam Narrative Exam Narrative: GEN: AOx3 and in mild distress EYES: Pupils are equal, round, and reactive to light and accommodation. Extraoccular muscles are intact bilaterally. There is no subconjunctival hemorrhage or exudate. CHEST: Lungs are clear to auscultation bilaterally and free of wheezes, rales, or rhonchi. Heart rate is regular rhythm, there are no murmurs, clicks, rubs, or gallops. There is no chest wall tenderness. ABD: Abdomen is soft and nontender. There is no guarding or rebound. Bowel sounds are normal in all 4 quadrants. There is no mass or organomegaly. EXT: Wound dressing is clean with some dried blood. No surrounding erythema or pain. Right lower extremity is notably edematous with 2+ pitting edema but sensation is intact. No pain erythema or warmth motion and sensation intact SKIN: Warm, pink, and dry. No erythema or rash Initial Vital Signs Initial Vital Signs: Vital Signs Temperature 97.8 F 10/27/18 10:22 Pulse Rate 85 10/27/18 10:22 Respiratory Rate 18 10/27/18 10:22 Blood Pressure 128/80 10/27/18 10:22 Pulse Oximetry 98 10/27/18 10:22 Course Orders Ordered: ED Orders 10/27/18 10:35 perip venous low extrem rt Stat Consultations Consultation #1: Dr. Villegas consulted regarding device, he states that they are intended to function only for the first few days. They do not get replaced. It can stay in place, as is until follow up on Tuesday Vital Signs - 8 hr 10/27/18 10:22 Temperature 97.8 F Pulse Rate 85 Respiratory Rate 18 Blood Pressure 128/80 Pulse Oximetry 98 MDM - Extremity (Nontraumatic) Imaging Data Venous US: Radiologist's impression: [place] [id number] Ultrasound Report Signed Patient: Flor De Leon [facility]#: [id number] : 1965Acct:[id number] Age/Sex: 53 / FDate of Service: 10/27/18 Loc: ED Accession Number: [id number] Procedure: perip venous low extrem rt Ordering Provider: Derick Jackson D.O. PROCEDURE: PERIP VENOUS LOW EXTREM RT INDICATIONS: PAIN, SWELLING RIGHT LOWER EXTREMITY, STATUS POST RIGHT HIP TECHNIQUE: Real-time imaging, as well as color and pulse Doppler interrogation, were performed of the lower extremity deep veins from the inguinal ligament to the popliteal fossa. COMPARISON: None. FINDINGS: The common femoral, femoral and popliteal veins are normally compressible, and free of intraluminal thrombus. Color and pulse Doppler demonstrate normal phasic intraluminal flow. There is normal augmentation response to distal compression maneuver. Mild right inguinal adenopathy. IMPRESSION: Negative for deep vein thrombosis. Dictated by: Angella Henderson M.D. on 10/27/2018 at 11:55 [facility] Narrative Medical decision making narrative: 53-year-old female with recent hip surgery presents complaining of a malfunctioning orthopedic wound device. Ortho confirms that it is functioning as intended. Furthermore when noted she has swelling of her right lower extremity a DVT ultrasound ordered which is negative. DVT and infection considered but thought less likely. This swelling is almost surely merely a consequence of a recent surgery and nothing to worry about. Patient given return precautions and verbalizes understanding of these precautions as well as discharge plan and diagnosis Discharge Plan Departure Patient Disposition: Home Clinical Impression: Edema, peripheral Discharge Date/Time: 10/27/18 11:55 Interventions: ED Discharge Assessment Last Done: 10/27/18 11:55 Instructions: DI for Peripheral Edema, Unilateral Activity Restrictions/Additional Instructions: *You have been diagnosed with [unilateral edema of your right leg, there was no DVT noted and no signs of infection. This is likely swelling as a consequence of her surgery.] *What to do: *Take medications as directed *Follow up with your primary care provider in 2-3 days, call for an appointment. Let them know you were seen in the Emergency Department and that we ask that you be seen in follow up *Return to ER if you should have any new, worsening or concerning symptoms Prescriptions: No Action levothyroxine 150 mcg tablet 150 mcg PO DAILY Qty: 90 RF: 3 aspirin 325 mg tablet 325 mg PO DAILY RF: 0 barbara (Zingiber officinalis) 550 mg capsule 550 mg PO DAILY RF: 0 acetaminophen 325 mg Tablet 975 mg PO TID Qty: 0 RF: 0 docusate sodium 100 mg Capsule 100 mg PO BID Qty: 0 RF: 0 oxycodone 5 mg Tablet 5 mg PO Q4-6H PRN (Reason: Pain, Moderate (4-6)) Qty: 0 RF: 0 carbamazepine 200 mg tablet 400 mg PO BID RF: 0 carbamazepine 200 mg tablet 600 mg PO BEDTIME RF: 0 methylprednisolone acetate [Depo-Medrol] 80 mg/mL suspension 80 mg IM ONCE Qty: 1 RF: 0 celecoxib [Celebrex] 200 mg capsule 200 mg PO DAILY Qty: 90 RF: 2 Referrals: Wendy Eric MD [Physician] -
== END 2018-10-27 11:55 | disposition home or self-care (01) ==
PROVIDERS: Emergency Provider Emergency Medicine; PCP Family Medicine
DX: R60.9 Edema, unspecified (principal)
CPT/HCPCS: 93971; 99282; 99283

== ENCOUNTER → 2019-04-24 09:35 | Outpatient (CLI) | payer MEDICARE, SELFPAY ==
[2018-10-19 12:14] VITALS: BMI 28.4
[2019-04-24 11:21] LABS: Vitamin D 25 Hydroxy (D3) 21.7 ng/mL (30.0-100.0)
[2019-04-24 11:23] LABS: Free T4, Direct Thyroxine 0.89 ng/dL (0.78-2.19)
[2019-04-30 13:26] LABS: Carbamazepine Tegretol Level 10.1 mg/L (4.0-12.0)
== END ==
PROVIDERS: PCP Student in an Organized Health Care Education/Training Program; Visit Provider Student in an Organized Health Care Education/Training Program
DX: E03.9 Hypothyroidism, unspecified (principal); Z79.899 Other long term (current) drug therapy; Z86.69 Personal history of other diseases of the nervous system and sense organs; E55.9 Vitamin D deficiency, unspecified; Z85.850 Personal history of malignant neoplasm of thyroid
CPT/HCPCS: 36415; 80156; 82306; 84439; 84443

== ENCOUNTER → 2019-10-08 10:45 | Outpatient (CLI) | payer MEDICARE, SELFPAY ==
[2018-10-19 12:14] VITALS: BMI 28.4
[2019-10-08 13:48] LABS: Free T3, Triiodothyronine Free 3.24 pg/mL (2.77-5.27); Free T4, Direct Thyroxine 0.92 ng/dL (0.78-2.19)
== END ==
PROVIDERS: PCP Student in an Organized Health Care Education/Training Program; Referring Provider Student in an Organized Health Care Education/Training Program; Visit Provider Student in an Organized Health Care Education/Training Program
DX: E03.9 Hypothyroidism, unspecified (principal)
CPT/HCPCS: 36415; 84439; 84443; 84481

== ENCOUNTER → 2019-11-27 10:45 | Outpatient (CLI) | payer MEDICARE, SELFPAY ==
[2018-10-19 12:14] VITALS: BMI 28.4
[2019-11-27 12:20] LABS: Free T3, Triiodothyronine Free 4.92 pg/mL (2.77-5.27); Free T4, Direct Thyroxine 1.44 ng/dL (0.78-2.19)
[2019-11-27 12:34] LABS: Thyroid Stimulating Hormone 1.51 uIU/mL (0.47-4.68)
== END ==
PROVIDERS: PCP Student in an Organized Health Care Education/Training Program; Referring Provider Student in an Organized Health Care Education/Training Program; Visit Provider Student in an Organized Health Care Education/Training Program
DX: E89.0 Postprocedural hypothyroidism (principal); Z85.850 Personal history of malignant neoplasm of thyroid
CPT/HCPCS: 36415; 84439; 84443; 84481

== ENCOUNTER 2020-10-11 09:20 | Emergency (ER) | payer MEDICARE, SELFPAY ==
[2018-10-19 12:14] VITALS: BMI 28.4
[2020-10-11 09:20] VITALS: BP 142/81; PULSE 78; RESP 18; TEMP 36.7; O2SAT 99
--- NOTE | 2020-10-11 09:35 | ED.RECABL ---
HPI - Recheck/Abnormal Lab/Rx General Chief Complaint: Recheck/Abnormal Lab/Rx Stated Complaint: needs carbamazepine rx Time Seen by Provider: 10/11/20 09:28 Source: patient Mode of arrival: Ambulatory Limitations: no limitations History of Present Illness HPI narrative: Patient is a 55-year-old female with history of seizures presenting with need for carbamazepine, a she states that she went to supervisor opening and picking her prescription this morning at her pharmacy however due to a power outage they are closed and she took her last pill last night. She already is having some facial twitching and seizure-like activity. She needs her morning dose and likely a couple more pills. She has no other complaints or issues today. MD complaint: medication refill request Related Data Previous Rx's Medication Instructions Recorded celecoxib 200 mg capsule 200 mg PO DAILY #90 cap 12/19/19 levothyroxine 125 mcg tablet 250 mcg PO DAILY #180 tab 12/31/19 carbamazepine 200 mg tablet See Rx Instructions .ROUTE 06/09/20 .COMPLEX #210 tablet lorazepam 0.5 mg tablet 0.25 mg PO BID #30 tab 08/27/20 carbamazepine 400 mg PO TID #20 tab 10/11/20 Allergies Allergy/AdvReac Type Severity Reaction Status Date / Time Influenza Virus Vaccines Allergy Intermediate vomiting Verified 08/27/20 15:34 [INFLUENZA VIRUS VACCINES] morphine [MORPHINE] Allergy Unknown GI UPSET Verified 08/27/20 15:34 Review of Systems Review of Systems Narrative: GENERAL: Denies chills,fever HEENT: Denies throat pain RESPIRATORY: Denies dyspnea, cough, wheezing CARDIOVASCULAR: Denies chest pain, palpitations GASTROINTESTINAL: Denies nausea, vomiting MUSCULOSKELETAL: Denies extremity pain, injury SKIN: No rash, no laceration, no pruritus NEUROLOGIC: + seizure Denies weakness, dizziness, headache, numbness 8 point review of systems is negative except for those stated above and HPI Patient History Medical History Cerebral palsy Lateral epicondylitis of left elbow Leukocytopenia, unspecified Meningitis Sigmoid volvulus Sprain of right thumb Thyroid cancer Surgical History H/O right wrist surgery (~2012) History of arthroplasty of right knee History of total left hip arthroplasty Hx of partial adrenalectomy (~12/2005) S/P colon resection Status post delivery Status post knee surgery Social History household members: spouse and family Smoking Status: Former smoker Smoking Status: Former smoker alcohol intake frequency: 0-2 drinks per day Substance Use Type: does not use Exam Initial Vital Signs Initial Vital Signs: Vital Signs Temperature 98.1 F 10/11/20 09:20 Pulse Rate 78 10/11/20 09:20 Respiratory Rate 18 10/11/20 09:20 Blood Pressure 142/81 H 10/11/20 09:20 Pulse Oximetry 99 10/11/20 09:20 GENERAL: Well-appearing, well-nourished and in no acute distress. CARDIOVASCULAR: peripheral pulses in tact, cap refill <2 sec RESPIRATORY: No respiratory distress, speaks in full sentences without difficulty EXTREMITIES: Normal range of motion, no clubbing or edema. Neurovascularly intact NEUROLOGICAL: Cranial nerves II through XII grossly intact. Normal gait and speech. She is having some facial twitching but awake and alert SKIN: Warm, dry, no petechiae, no rashes or lesions. Course Orders Ordered: Discontinued Medications Carbamazepine (Carbamazepine 200 Mg Tablet) 400 mg PO NOW ONE Stop: 10/11/20 09:35 Last Admin: 10/11/20 09:41 Dose: 400 mg Documented by: Vital Signs Vital signs: Vital Signs - 8 hr 10/11/20 09:20 Temperature 98.1 F Pulse Rate 78 Respiratory Rate 18 Blood Pressure 142/81 H Pulse Oximetry 99 Discharge Plan Departure Patient Disposition: Home Clinical Impression: Seizure disorder Instructions: DI for Seizure Disorder -- Adult Activity Restrictions/Additional Instructions: *You have been diagnosed with seizure disorder, medication refill *What to do: I am sorry your pharmacy lost power. Please is take prescription to an open pharmacy. Please talk with your PCP about your drug levels they may need to be checked *Continue to take medications as directed Tegretol 400 mg morning and noon and 600 mg at night *Follow up with your primary care provider in 2-3 days *Return to ER if you should have increased seizure activity or any new, worsening or concerning symptoms Prescriptions: New carbamazepine 200 mg tablet 400 mg PO TID Qty: 20 RF: 0 No Action levothyroxine 125 mcg tablet 250 mcg PO DAILY Qty: 180 RF: 3 carbamazepine 200 mg tablet See Rx Instructions .ROUTE .COMPLEX Qty: 210 RF: 5 lorazepam 0.5 mg tablet 0.25 mg PO BID Qty: 30 RF: 5 Hold Instructions: Needs to be seen in clinic celecoxib [Celebrex] 200 mg capsule 200 mg PO DAILY Qty: 90 RF: 2 Referrals: Tano Casillas MD [Primary Care Provider] -
[2020-10-11] MEDS: carBAMazepine 200 MG TABLET 400 MG PO (09:41)
== END 2020-10-11 09:45 | disposition home or self-care (01) ==
PROVIDERS: Emergency Provider Emergency Medicine; PCP Student in an Organized Health Care Education/Training Program
DX: R56.9 Unspecified convulsions (principal)
CPT/HCPCS: 99283

== ENCOUNTER → 2021-07-17 09:57 | Outpatient (CLI) | payer MEDICARE, SELFPAY ==
[2018-10-19 12:14] VITALS: BMI 28.4
[2021-07-17 11:15] LABS: BUN Creatinine Ratio 26.7 (6-22); Blood Urea Nitrogen 16 mg/dL (7-17); Calcium 9.1 mg/dL (8.4-10.2); Carbon Dioxide 28 mmol/L (22-32); Chloride 104 mmol/L (98-107); Estimated Glomerular Filt Rate > 60.0 mL/min (>60); Glucose 86 mg/dL (70-100); Potassium 4.8 mmol/L (3.4-5.1); Sodium 137 mmol/L (137-145)
[2021-07-17 11:18] LABS: HEMOLYSIS 81 (0-50)
[2021-07-17 11:48] LABS: TSH w/ Reflex to FT4 0.71 uIU/mL (0.47-4.68)
== END ==
PROVIDERS: PCP Student in an Organized Health Care Education/Training Program; Referring Provider Student in an Organized Health Care Education/Training Program; Visit Provider Student in an Organized Health Care Education/Training Program
DX: E03.9 Hypothyroidism, unspecified (principal); Z79.899 Other long term (current) drug therapy
CPT/HCPCS: 36415; 80048; 84443

== ENCOUNTER → 2022-04-19 08:48 | Outpatient (CLI) | payer MEDICARE, SELFPAY ==
[2021-12-30 09:20] VITALS: BMI 28.4
--- NOTE | 2022-04-19 08:49 | DI.RAD.S_ITS ---
PROCEDURE: XR ELBOW LT MIN 3V INDICATIONS: left elbow pain hx of fx TECHNIQUE: 3 views of the elbow were acquired. COMPARISON: [facility], , ELBOW 3+ VIEWS LEFT, 06/03/2017, 15:52. FINDINGS: Bones: No fractures or dislocations. No suspicious bony lesions. Arthritic changes are present at the elbow including areas of subchondral sclerosis and periarticular osteophytes. Soft tissues: No elbow joint effusion. No suspicious soft tissue calcifications. IMPRESSION: Prominent arthritic changes. No visualized acute fracture or dislocation. However, if clinical concern and/or pain persist, short interval imaging followup in 7-10 days is recommended, as occult injury cannot be definitively excluded. Dictated by: Jen Clayton M.D. on 04/19/2022 at 9:30 Approved by: Jen Clayton M.D. on 04/19/2022 at 9:32
--- NOTE | 2022-04-19 10:15 | DI.RAD.S_ITS ---
PROCEDURE: XR HAND LT MIN 3V INDICATIONS: left CMC joint pain TECHNIQUE: 3 views of the hand(s) acquired. COMPARISON: [facility], [place], XR WRIST LT MIN 3V, 04/19/2022, 10:24. FINDINGS: Bones: No fractures or dislocations. Carpal bones are normally aligned. No suspicious bony lesions. Prominent radiocarpal as well as 1st CMC arthritic narrowing is present. Diffuse mild IP degenerative narrowing is present. Soft tissues: No suspicious soft tissue calcifications. IMPRESSION: Prominent arthritic change notably at the 1st CMC joint. Dictated by: Jen Clayton M.D. on 04/19/2022 at 11:20 Approved by: Jen Clayton M.D. on 04/19/2022 at 11:20
--- NOTE | 2022-04-19 10:15 | DI.RAD.S_ITS ---
PROCEDURE: XR WRIST LT MIN 3V INDICATIONS: left wrist pain TECHNIQUE: 4 views of the wrist were acquired. COMPARISON: [facility], [place], XR HAND LT MIN 3V, 04/19/2022, 10:24. [facility], [place], WRIST MINIMUM 3 VIEWS RIGHT, 05/17/2012, 17:01. FINDINGS: Bones: No fractures or dislocations. No suspicious bony lesions. Radiocarpal and significant 1st CMC degenerative narrowing is present. Scaphoid view: No visualized fracture. Soft tissues: No suspicious soft tissue calcifications. IMPRESSION: Arthritic changes as above. No visualized acute fracture or dislocation. However, if clinical concern and/or pain persist, short interval imaging followup in 7-10 days is recommended, as occult injury cannot be definitively excluded. Dictated by: Jen Clayton M.D. on 04/19/2022 at 11:19 Approved by: Jen Clayton M.D. on 04/19/2022 at 11:19
== END ==
PROVIDERS: PCP Student in an Organized Health Care Education/Training Program; Referring Provider Physical Medicine & Rehabilitation; Visit Provider Physical Medicine & Rehabilitation
DX: M77.12 Lateral epicondylitis, left elbow (principal); M18.9 Osteoarthritis of first carpometacarpal joint, unspecified; M19.032 Primary osteoarthritis, left wrist; M18.12 Unilateral primary osteoarthritis of first carpometacarpal joint, left hand; G80.1 Spastic diplegic cerebral palsy; M19.122 Post-traumatic osteoarthritis, left elbow
CPT/HCPCS: 73080; 73110; 73130; 99214

== ENCOUNTER → 2022-07-28 15:21 | Outpatient (CLI) | payer MEDICARE, SELFPAY ==
[2021-12-30 09:20] VITALS: BMI 28.4
[2022-07-28 17:33] LABS: BUN Creatinine Ratio 24.6 (6-22); Blood Urea Nitrogen 16 mg/dL (7-17); Calcium 8.8 mg/dL (8.4-10.2); Carbon Dioxide 27 mmol/L (22-32); Chloride 100 mmol/L (98-107); Estimated Glomerular Filt Rate > 60 mL/min (>60); Glucose 79 mg/dL (70-100); HEMOLYSIS < 15 (0-50); Potassium 4.3 mmol/L (3.4-5.1); Sodium 136 mmol/L (137-145)
[2022-07-28 18:03] LABS: TSH w/ Reflex to FT4 4.66 uIU/mL (0.47-4.68)
[2022-07-29 16:29] LABS: Hep C Virus Ab w/Reflex Quant NEGATIVE s/c (NEGATIVE)
== END ==
PROVIDERS: PCP Student in an Organized Health Care Education/Training Program; Referring Provider Student in an Organized Health Care Education/Training Program; Visit Provider Student in an Organized Health Care Education/Training Program
DX: E03.9 Hypothyroidism, unspecified (principal); Z79.1 Long term (current) use of non-steroidal anti-inflammatories (NSAID); Z11.59 Encounter for screening for other viral diseases
CPT/HCPCS: 36415; 80048; 84443; 86803

== ENCOUNTER → 2022-09-13 11:04 | Outpatient (CLI) | payer MEDICARE, SELFPAY ==
[2021-12-30 09:20] VITALS: BMI 28.4
[2022-09-13 12:27] LABS: Erythrocyte Sedimentation Rate 17 MM/HR (0-20)
[2022-09-14 05:01] LABS: C-Reactive Protein Quant 0.6 mg/dL (<1.0); Rheumatoid Factor 9.4 IU/mL (<12.0); Uric Acid 3.5 mg/dL (2.5-6.2)
[2022-09-17 16:43] LABS: ANA Screen, IFA Negative (.)
== END ==
PROVIDERS: PCP Student in an Organized Health Care Education/Training Program; Referring Provider Orthopaedic Surgery; Visit Provider Orthopaedic Surgery
DX: M18.12 Unilateral primary osteoarthritis of first carpometacarpal joint, left hand (principal); M19.032 Primary osteoarthritis, left wrist; M18.9 Osteoarthritis of first carpometacarpal joint, unspecified
CPT/HCPCS: 36415; 84550; 85651; 86038; 86140; 86430

== ENCOUNTER → 2023-06-24 11:49 | Outpatient (CLI) | payer MEDICARE, SELFPAY ==
[2021-12-30 09:20] VITALS: BMI 28.4
[2023-06-24 12:55] LABS: Add Manual Diff / Slide Review NO; Basophils Absolute Auto 0 /uL (0-100); Basophils Percent Auto 1.3 % (0-2); Eosinophils Absolute Auto 100 /uL (0-450); Eosinophils Percent Auto 3.6 % (2-4); Hematocrit 38.1 % (36-46); Hemoglobin 13.1 g/dL (12.0-16.0); Lymphocytes Absolute Auto 400 /uL (1100-4500); Mean Corpuscular HGB Conc 34.3 % (30-36); Mean Corpuscular Hemoglobin 32.4 PG (26-34); Mean Corpuscular Volume 94.4 fL (80-100); Monocytes Absolute Auto 300 /uL (0-900); Monocytes Percent Auto 10.7 % (3-14); Neutrophils Absolute Auto 1600 /uL (1500-7000); Neutrophils Percent Auto 68.4 % (50-75); Platelet Count 244 X10^3/uL (150-400); Red Blood Cell Count 4.03 X10^6/uL (4.0-5.2); Red Cell Distribution Width 13.5 % (11.6-14.8); White Blood Cell Count 2.4 X10^3/uL (4.5-11.0)
[2023-06-24 13:28] LABS: Alanine Aminotransferase 15 IU/L (<35); Albumin Globulin Ratio 1.3 (1.0-2.8); Alkaline Phosphatase 113 U/L (38-126); Aspartate Aminotransferase 22 IU/L (14-36); BUN Creatinine Ratio 27.3 (6-22); Bilirubin Total 0.6 mg/dL (0.2-1.3); Blood Urea Nitrogen 18 mg/dL (7-17); Calcium 9.2 mg/dL (8.4-10.2); Carbon Dioxide 26 mmol/L (22-32); Chloride 104 mmol/L (98-107); Cholesterol 216 mg/dL (140-199); Estimated Glomerular Filt Rate > 60 mL/min (>60); Globulin 3.1 g/dL (1.7-4.1); Glucose 80 mg/dL (70-100); HDL Cholesterol 79 mg/dL (40-60); HEMOLYSIS < 15 (0-50); LDL Cholesterol Calculated 126 mg/dL (<100); Potassium 4.5 mmol/L (3.4-5.1); Sodium 137 mmol/L (137-145); Total Protein 7.1 g/dL (6.3-8.2); Triglycerides 57 mg/dL (35-150)
[2023-06-24 13:57] LABS: Thyroid Stimulating Hormone 2.77 uIU/mL (0.47-4.68)
== END ==
PROVIDERS: PCP Family Medicine; Referring Provider Family Medicine; Visit Provider Family Medicine
DX: E03.9 Hypothyroidism, unspecified (principal); F41.1 Generalized anxiety disorder; G80.9 Cerebral palsy, unspecified
CPT/HCPCS: 36415; 80053; 80061; 84439; 84443; 85025

== ENCOUNTER → 2024-03-23 09:12 | Outpatient (CLI) | payer MEDICARE, SELFPAY ==
[2021-12-30 09:20] VITALS: BMI 28.4
--- NOTE | 2024-03-23 09:14 | DI.CT.S_ITS ---
PROCEDURE: CT FOOT RIGHT WITHOUT CON INDICATIONS: CAVOVARUS DEFORMITY,CONGENITAL TECHNIQUE: Noncontrast 1-1.5 mm axial sections acquired from above the tibiotalar joint to the bottom of the calcaneus, with coronal and sagittal reformats. COMPARISON: [facility], [place], XR ANKLE 3+ VIEWS RIGHT, 03/20/2024, 11:56. FINDINGS: Image quality: Excellent. Bones: Hindfoot varus. Mild pes cavus. Chronic deformity of the 5th metatarsal, likely representing healed fracture. Metatarsal adductus. No acute fracture or dislocation in the ankle and foot. Moderate degenerative changes of the posterior subtalar joint. 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 Soft tissues: Heterotopic calcification of the peroneal tendon slightly inferior to the level of the posterior subtalar joint, representing prior injury. The flexors, and extensor tendons are unremarkable. The distal Achilles tendon is unremarkable. Mild subcutaneous edema of the medial and lateral ankle. IMPRESSION: 1. Hindfoot varus. Mild pes cavus. Metatarsal adductus. 2. Moderate degenerative changes of the posterior subtalar joint. Dictated by: Celine Carrera M.D. on 03/23/2024 at 14:03 Approved by: Celine Carrera M.D. on 03/23/2024 at 14:10
== END ==
PROVIDERS: PCP Family Medicine; Referring Provider Orthopaedic Surgery Foot and Ankle Surgery; Visit Provider Orthopaedic Surgery Foot and Ankle Surgery
DX: Q66.71 Congenital pes cavus, right foot (principal); Q66.10 Congenital talipes calcaneovarus, unspecified foot; M21.6X1 Other acquired deformities of right foot
CPT/HCPCS: 73700

== ENCOUNTER → 2024-04-10 10:40 | Outpatient (CLI) | payer MEDICARE, SELFPAY ==
[2021-12-30 09:20] VITALS: BMI 28.4
--- NOTE | 2024-04-10 10:58 | EKG_ITS ---
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
[2024-04-10 11:14] LABS: Add Manual Diff / Slide Review NO; Basophils Absolute Auto 0 /uL (0-100); Basophils Percent Auto 0.8 % (0-2); Eosinophils Absolute Auto 100 /uL (0-450); Eosinophils Percent Auto 2.2 % (2-4); Hematocrit 40.2 % (36-46); Hemoglobin 13.7 g/dL (12.0-16.0); Lymphocytes Absolute Auto 500 /uL (1100-4500); Lymphocytes Percent Auto 12.2 % (25-40); Mean Corpuscular HGB Conc 34.1 % (30-36); Mean Corpuscular Hemoglobin 32.4 PG (26-34); Mean Corpuscular Volume 95.1 fL (80-100); Monocytes Absolute Auto 300 /uL (0-900); Monocytes Percent Auto 8.8 % (3-14); Neutrophils Absolute Auto 2800 /uL (1500-7000); Platelet Count 269 X10^3/uL (150-400); Red Blood Cell Count 4.23 X10^6/uL (4.0-5.2); Red Cell Distribution Width 13.3 % (11.6-14.8); White Blood Cell Count 3.7 X10^3/uL (4.5-11.0)
[2024-04-10 11:39] LABS: BUN Creatinine Ratio 30.4 (6-22); Blood Urea Nitrogen 21 mg/dL (7-17); Calcium 9.4 mg/dL (8.4-10.2); Carbon Dioxide 27 mmol/L (22-32); Chloride 103 mmol/L (98-107); Estimated Glomerular Filt Rate > 60 mL/min (>60); Glucose 95 mg/dL (80-110); HEMOLYSIS < 15 (0-50); Potassium 4.5 mmol/L (3.4-5.1); Sodium 136 mmol/L (137-145)
== END ==
LOC: LAB 10:42
PROVIDERS: PCP Family Medicine; Referring Provider Orthopaedic Surgery Foot and Ankle Surgery; Visit Provider Orthopaedic Surgery Foot and Ankle Surgery
DX: Z01.818 Encounter for other preprocedural examination (principal); Z01.812 Encounter for preprocedural laboratory examination
CPT/HCPCS: 36415; 80048; 85025; 93005

== ENCOUNTER 2024-04-14 12:39 | Emergency (ER) | payer MEDICARE, SELFPAY ==
[2021-12-30 09:20] VITALS: BMI 28.4
[2024-04-14 12:54] VITALS: BP 136/63; PULSE 75; RESP 16; TEMP 35.9; O2SAT 99; BMI 30.2
--- NOTE | 2024-04-14 12:57 | ED.UPPEXIN ---
HPI - Extremity Injury (Upper) General Stated Complaint: wound on left arm Time Seen by Provider: 04/14/24 12:56 Related Data Previous Rx's Medication Instructions Recorded celecoxib 200 mg capsule See Rx Instructions .Route 03/30/23 .COMPLEX #90 caps lorazepam 0.5 mg tablet 0.25 mg (1/2 x 0.5 mg) PO BID #30 07/16/23 tabs levothyroxine 125 mcg tablet See Rx Instructions .Route 09/13/23 .COMPLEX #180 tabs carbamazepine 200 mg tablet See Rx Instructions .Route 03/13/24 .COMPLEX 90 days #210 tabs Allergies Allergy/AdvReac Type Severity Reaction Status Date / Time Influenza Virus Vaccines Allergy Intermediate vomiting Verified 12/28/23 09:51 [INFLUENZA VIRUS VACCINES] morphine [MORPHINE] Allergy Unknown GI UPSET Verified 12/28/23 09:51 Patient History Medical History Plantar wart of right foot Left knee DJD Distal radius fracture, left Radial head fracture 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, left Unspecified hearing loss (10/26/11) Localization-related (focal) (partial) symptomatic epilepsy and epileptic syndromes with simple partial seizures, intractable, without status epilepticus Cerebral palsy Lateral epicondylitis of left elbow Thyroid cancer Leukocytopenia, unspecified Sigmoid volvulus Meningitis Sprain of right thumb Surgical History S/P colon resection Hx of partial adrenalectomy (~12/2005) H/O right wrist surgery (~2012) History of arthroplasty of right knee History of total left hip arthroplasty Status post delivery Status post knee surgery Social History household members: spouse and family Smoking Status: Former smoker Smoking Status: Former smoker alcohol intake frequency: 0-2 drinks per day Substance Use Type: does not use Discharge Plan Departure Prescriptions: No Action lorazepam 0.5 mg tablet 0.25 mg PO BID Qty: 30 5RF Hold Instructions: Needs to be seen in clinic levothyroxine 125 mcg tablet See Rx Instructions .ROUTE .COMPLEX Qty: 180 3RF Dose Instruction: take 2 tablets by mouth once daily Rx Instructions: take 2 tablets by mouth once daily carbamazepine 200 mg tablet See Rx Instructions .ROUTE .COMPLEX 90 Days Qty: 210 11RF Dose Instruction: Take 2 tabs every morning, 2 tabs at noon, and 3 tabs at bedtime. Rx Instructions: Take 2 tabs every morning, 2 tabs at noon, and 3 tabs at bedtime. celecoxib 200 mg capsule See Rx Instructions .ROUTE .COMPLEX Qty: 90 3RF Dose Instruction: take 1 capsule by mouth once daily Rx Instructions: take 1 capsule by mouth once daily Referrals: Apolinar Monsivais, [Primary Care Provider] -
--- NOTE | 2024-04-14 13:06 | ED.UPPEXIN ---
HPI - Extremity Injury (Upper) <Nicole Dennis PA-C - Last Filed: 04/14/24 13:41> General Chief Complaint: Wound/Laceration Stated Complaint: wound on left arm Time Seen by Provider: 04/14/24 12:56 Source: patient Mode of arrival: Ambulatory History of Present Illness HPI narrative: Patient presents to the emergency room department with a scrape on the left forearm that happened several days ago that continues to weep. The patient presented to the emergency department because even know she covers it continues to weep. She does not know what to do. She is worried that it continues to weep. She has been covering it with a 4 x 4 and tape. She has no other further complaints. Related Data Previous Rx's Medication Instructions Recorded celecoxib 200 mg capsule See Rx Instructions .Route 03/30/23 .COMPLEX #90 caps lorazepam 0.5 mg tablet 0.25 mg (1/2 x 0.5 mg) PO BID #30 07/16/23 tabs levothyroxine 125 mcg tablet See Rx Instructions .Route 09/13/23 .COMPLEX #180 tabs carbamazepine 200 mg tablet See Rx Instructions .Route 03/13/24 .COMPLEX 90 days #210 tabs Allergies Allergy/AdvReac Type Severity Reaction Status Date / Time Influenza Virus Vaccines Allergy Intermediate vomiting Verified 04/14/24 12:58 [INFLUENZA VIRUS VACCINES] morphine [MORPHINE] Allergy Unknown GI UPSET Verified 04/14/24 12:58 Review of Systems <Nicole Dennis PA-C - Last Filed: 04/14/24 13:41> Review of Systems Narrative: Negative except as above Musculoskeletal Comments: She has a small skin tear on the left forearm that continues to weep after she bumped it several days ago. 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, left Unspecified hearing loss (10/26/11) Localization-related (focal) (partial) symptomatic epilepsy and epileptic syndromes with simple partial seizures, intractable, without status epilepticus Cerebral palsy Lateral epicondylitis of left elbow Thyroid cancer Leukocytopenia, unspecified Sigmoid volvulus Meningitis Sprain of right thumb Surgical History S/P colon resection Hx of partial adrenalectomy (~12/2005) H/O right wrist surgery (~2012) History of arthroplasty of right knee History of total left hip arthroplasty Status post delivery Status post knee surgery Social History household members: spouse and family Smoking Status: Former smoker Smoking Status: Former smoker alcohol intake frequency: 0-2 drinks per day Substance Use Type: does not use Exam <Nicole Dennis PA-C - Last Filed: 04/14/24 13:41> Initial Vital Signs Initial Vital Signs: Vital Signs Temperature 96.6 F L 04/14/24 12:54 Pulse Rate 75 04/14/24 12:54 Respiratory Rate 16 04/14/24 12:54 Blood Pressure 136/63 04/14/24 12:54 Pulse Oximetry 99 04/14/24 12:54 Oxygen Delivery Method Room Air 04/14/24 12:54 Reviewed. Const Other: Alert and oriented no acute distress regular body habitus Eyes Other: Pupils are PERRLA, EOMs are intact Skin Other: Patient has a small skin tear avulsion skin tear to the left forearm, the arm is quite edematous which causes the ear to be some weeping. There is no erythema, there is redness, there no signs of infection. She currently has a dressing on it that has some serosanguineous fluid on it. The dressing is removed, there is some held drainage. I have explained to her that she has a lot of fluid and some swelling in the arm which is causing the fluid to come out. It has not infected. She can covered with Telfa and Coban use some compression which will help decrease the serosanguineous fluid. I have also explained to her that if she is at home she can leave it open and just kind of pat it dry and allow for a scabbed forearm. Neuro Other: Cranial nerves are grossly intact Extrem Other: Range of motion, strength, pulses, cap refill preserved in the upper and lower extremities. Left upper extremity she has a very small less than half a cm skin tear/avulsion wound to the left forearm. She is some moderate edema to the upper extremities. Pulses are present. Cap refill is preserved. There is no signs of infection or cellulitis. Range of motion is not impaired. Telfa was applied and Coban secures the Telfa and place. Psych Other: Parents, mental status, speech, movement, mood, affect, attitude, thought process, thought content and judgment is intact. <Merlene Sharp MD - Last Filed: 04/14/24 18:43> Initial Vital Signs Initial Vital Signs: Vital Signs Temperature 96.6 F L 04/14/24 12:54 Pulse Rate 75 04/14/24 12:54 Respiratory Rate 16 04/14/24 12:54 Blood Pressure 136/63 04/14/24 12:54 Pulse Oximetry 99 04/14/24 12:54 Oxygen Delivery Method Room Air 04/14/24 12:54 Scores <Nicole Dennis PA-C - Last Filed: 04/14/24 13:41> GCS Citation: 15 Course <Nicole Dennis PA-C - Last Filed: 04/14/24 13:41> Orders Ordered: Discontinued Medications Ondansetron HCl (Ondansetron 4 Mg Odt) 4 mg SL NOW ONE Stop: 04/14/24 13:36 Vital Signs Vital signs: Vital Signs - 8 hr 04/14/24 12:54 Temperature 96.6 F L Pulse Rate 75 Respiratory Rate 16 Blood Pressure 136/63 Pulse Oximetry 99 Oxygen Delivery Method Room Air <Merlene Sharp MD - Last Filed: 04/14/24 18:43> Orders Ordered: Discontinued Medications Ondansetron HCl (Ondansetron 4 Mg Odt) 4 mg SL NOW ONE Stop: 04/14/24 13:36 Vital Signs Vital signs: Vital Signs - 8 hr 04/14/24 12:54 Temperature 96.6 F L Pulse Rate 75 Respiratory Rate 16 Blood Pressure 136/63 Pulse Oximetry 99 Oxygen Delivery Method Room Air MDM - Extremity Injury (Upper) <Nicole Dennis PA-C - Last Filed: 04/14/24 13:41> MDM Narrative Medical decision making narrative: A 58-year-old female who has a small wound on the left forearm continues to have serosanguineous fluid leak. She is concerned because it continues to weep even know it has a wound from 5 days ago. She has been putting a 4 x 4 and some tape on it. No signs of infection. Supportive therapy education ED precautions Telfa was applied, Coban is used to secure the Telfa. Advised the patient is just going to take some time for the wound to heal, currently she does not need any antibiotics, it has not infected. I have explained to her serosanguineous fluid and whites leaking out due to the injury that she sustained. Differential diagnosis skin tear/avulsion injury to the left forearm. Discharge Plan Departure Patient Disposition: Home Clinical Impression: Skin tear Activity Restrictions/Additional Instructions: Keep the area clean and open when at home Please put a Telfa Please purchase Coban Cover when you are out Not infected Unfortunately this is just going to take time to heal Prescriptions: No Action lorazepam 0.5 mg tablet 0.25 mg PO BID Qty: 30 5RF Hold Instructions: Needs to be seen in clinic levothyroxine 125 mcg tablet See Rx Instructions .ROUTE .COMPLEX Qty: 180 3RF Dose Instruction: take 2 tablets by mouth once daily Rx Instructions: take 2 tablets by mouth once daily carbamazepine 200 mg tablet See Rx Instructions .ROUTE .COMPLEX 90 Days Qty: 210 11RF Dose Instruction: Take 2 tabs every morning, 2 tabs at noon, and 3 tabs at bedtime. Rx Instructions: Take 2 tabs every morning, 2 tabs at noon, and 3 tabs at bedtime. celecoxib 200 mg capsule See Rx Instructions .ROUTE .COMPLEX Qty: 90 3RF Dose Instruction: take 1 capsule by mouth once daily Rx Instructions: take 1 capsule by mouth once daily Referrals: Apolinar Monsivais, DO [Primary Care Provider] - Stand Alone Forms: Patient Portal/API ED Sign-out <Merlene Sharp MD - Last Filed: 04/14/24 18:43> Cosign ED Attending Cosignature Attestation: I was immediately available in the department for consultation throughout this patient's visit. Merlene Sharp MD
--- NOTE | 2024-04-14 13:17 | PC.NURSE ---
Pt was seen, assessed and treated by provider prior to this RN arrival. Drgs placed by provider.
== END 2024-04-14 13:19 | disposition home or self-care (01) ==
PROVIDERS: Emergency Provider Physician Assistant; PCP Family Medicine
DX: S51.812A Laceration without foreign body of left forearm, initial encounter (principal)
CPT/HCPCS: 99281

== ENCOUNTER 2024-05-30 13:02 | Inpatient (IN) | payer MEDICARE, SELFPAY ==
[2021-12-30 09:20] VITALS: BMI 28.4
[2024-05-28 14:51] VITALS: BMI 29.5
[2024-05-30] VITALS (11 sets, daily range): BP systolic 100–152; BP diastolic 63–85; PULSE 78–93; RESP 11–18; TEMP 36.6–37; O2SAT 95–99; BMI 29.5
--- NOTE | 2024-05-30 | DI.RAD.S_ITS ---
PROCEDURE: XR FOOT RT MIN 3V INDICATIONS: RIGHT HIND FOOT REPAIR TECHNIQUE: 5 intraoperative fluoroscopic views of the foot were acquired. COMPARISON: [facility], [place], XR FOOT 3 VIEWS WEIGHT BEARING RIGHT, 05/29/2024, 15:32. FINDINGS: Intraoperative fluoroscopic images shows extensive fusion of midfoot and hindfoot joints. There is also osteotomy involving posterior calcaneus with fixation screw in place. IMPRESSION: Fluoro guidance was provided intraoperatively for extensive midfoot and hindfoot surgeries. Dictated by: Bradley Chou M.D. on 05/30/2024 at 16:40 Approved by: Bradley Chou M.D. on 05/30/2024 at 16:41
[2024-05-30] MEDS: SCOPOLAMINE 1 PATCH TOP (10:57)
[2024-05-30] MEDS: LACTATED RINGERS 1,000 ML 42 ML IV ×2 (10:59→14:15)
[2024-05-30] MEDS: ACETAMINOPHEN IV 1,000 MG/100 ML VIAL 400 MG IV (11:02)
--- NOTE | 2024-05-30 11:36 | PM.PREOP ---
Pre-operative Note Interval Note History & Physical reviewed/Exam performed by Physician: Yes Changes to H&P: No
[2024-05-30] MEDS: CEFAZOLIN 2 GM/100 ML PREMIX 100 ML IV ×2 (12:14→20:58)
--- NOTE | 2024-05-30 12:16 | SUR.PREOP ---
Block start time [1135] . Monitoring initiated and maintained throughout procedure. Oxygen and medications given per anesthesiologist. Patient remained stable throughout procedure, no adverse reactions noted. Block end time [1204].
--- NOTE | 2024-05-30 12:46 | SUR.OPER ---
Supine on padded OR bed, head on pillow, arms secured on padded arm boards at <90 degrees abduction. lt arm elevated on pillow and secured, legs uncrossed, safety belt abdomen, tape over blanket over lower non op leg.
[2024-05-30] MEDS: BUPIVACAINE 0.25% (PF) 30 ML, EPINEPHrine 0.15 MG INJ (12:57)
--- NOTE | 2024-05-30 16:15 | PM.OP.1 ---
Operative Date/Time/Diagnoses Date of procedure: 05/30/24 Time of procedure: 16:32 Pre-op diagnosis: Right cavovarus foot deformity Achilles contracture Post-op diagnosis: same Procedure & Clinicians Procedure: Reconstruction right cavovarus foot deformity 1. CPT code triple arthrodesis CPT code 09384 including talonavicular joint calcaneocuboid joint and subtalar joint 2. Calcaneus osteotomy CPT code 82667 modifier 59 for separate site of surgery separate incision for lateralizing and the wire calcaneal osteotomy 3. First tarsometatarsal arthrodesis CPT code 60846 right 4. Percutaneous tendo-Achilles lengthening under general anesthesia CPT code 71278 separate site separate incisions modifier 59 for Achilles contracture 5. Released posterior tibialis tendon CPT code 19786 6. Reduction callus single at 5th metatarsal head separate site CPT code 81765 modifier 59 This procedure was performed with a modifier 22, for increased level of complexity multiple sutures required to correct severe cavovarus deformity taking approximately twice as long standard for correct procedure. Required separate additional osteotomies in addition to the triple arthrodesis. 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 She was unable to get her foot flat on the ground has a cavovarus foot, equinus contracture Achilles contracture high arch and 5th metatarsal head callus. She was indicated for cavovarus foot reconstruction with hindfoot fusions and osteotomies due to her rigid deformity. She is failed extensive conservative treatment. The risks and benefits of the procedure have been discussed with the patient and given the opportunity to ask questions. The risks of surgery include but are not limited to infection, malunion, nonunion, persistence of pain, damage to nerves and blood vessels, posttraumatic arthritis, DVT, PE, coardiopulmonary complications and . The patient expressed a thorough understanding of the risks and benefits of surgery and has elected to proceed. Consent was signed in the office. During the operation, the services of a physician operating room surgical technologist were medically indicated and necessary to provide the exposure of the operative site for the surgical procedure and to maintain the limb in a proper position to carry out the operation safely and efficiently. Without a qualified clinical project assistant being present this would extended the operative procedure and made the procedure technically more difficult to perform. Surgeon: Belén Urban Silverer: Lavonne Clayton Anesthesia Type: General, Peripheral nerve block and Local Operative Notes Findings: Severe rigid cavovarus foot with a plantar flexed 1st ray callus at the 5th metatarsal head. Incompletely correctable., equinus contracture. Closure Type: primary Prosthetic devices, grafts, tissues, transplants, or devices: Marion 28 5.5 cannulated monster screws long thread x3 Marion 28 7.0 monster cannulated screws long thread x1 Marion 28 great White staple 20 x 20 Marion 28 4.0 fully-threaded solid screws x2 Estimated Blood Loss (mL): 50 Tourniquet time (min): 130 Procedure in detail: Patient was seen in the preoperative area the site of surgery was marked informed consent confirmed. This was the right foot. Patient was seen by the anesthesia team a regional block was placed for postoperative pain control. The patient was brought back to the operating room positioned supine on operative table. General anesthetic was administered. The right lower extremity was prepped and draped in standard sterile fashion formal time-out procedure was performed confirming the patient side and site of surgery administration of appropriate preoperative antibiotic. All were in agreement. Tendo-Achilles lengthening: Attention turned to the right leg. There was a noted equinus contracture with inability to dorsiflex past neutral with the knee flexed and extended. There was not much difference in this this was an Achilles contracture. A decision for Achilles tendon lengthening was made. The leg was held with the knee extended with the dorsiflexion stress. Three small krystal sections percutaneous incisions were made through the Achilles tendon to 4 and 6 cm in bed the insertion. The distal end krystal sections were made to the medial side for the cavus deformity and middle section to the lateral side allowed a palpable and audible stretch and increased range of motion to 15? of dorsiflexion with the knee extended. Lateralizing calcaneal osteotomy: Attention was then turned to the right foot. The Esmarch was used for exsanguination and the tourniquet raised in the thigh to 250 mm Hg. C-arm was brought in instructors for the lateralizing calcaneal osteotomy was drawn out on the foot. This was necessary due to the severe cavovarus deformity. A oblique incision over the calcaneus tuberosity was made through the skin care to avoid the sural nerve this was taken down to bone and the periosteum dissection was completed. Two K-wires were entered utilizing axial trajectory to create a lateral based wedge osteotomy of the calcaneus for a lateralizing and wires style calcaneal osteotomy to correct the hindfoot varus. PPS saw was used to remove the lateral based wedge and the periosteal elevators to release the soft tissues and allow translation and rotation of the fragment to correct the deformity. Once this was completed this was provisionally pinned and then closed down with a cannulated 5.5 screw from the paragon set allowing excellent correction of the calcaneal varus. Next attention was turned to the triple arthrodesis: Separate incision laterally along the sinus tarsi was made from the tip of the fibula to the 4th metatarsal base the sinus tarsi was dissected out as well as the calcaneocuboid joint. Then suppressive dissection was completed along the posterior and middle facets of the subtalar joint and the calcaneocuboid joint this was denuded of all cartilage down to bleeding cancellous bone and then was burred and fenestrated. Then a separate incision was made for a medially based talonavicular approach which allowed release of the posterior tibialis tendon which was a deforming force in this severe cavovarus deformity. Next the talonavicular joint was then suppressive we dissected in the same fashion with curette osteotomes and then a bur and fenestrating drill. Once these joints were prepared the 3 cc of the augment platelet derived growth factor recombinant bone graft substitute was placed. The foot was then de rotated and pinned in position through the subtalar joint calcaneocuboid joint and talonavicular joints. This was checked on multiplanar intraoperative fluoroscopy including axial lateral and foot AP views. Once this was appropriately reduced attention 1st turned to the subtalar joint and a proximal to distal screw was placed from the talus into the calcaneus this was a long thread 7.0 monster screw from the paragon set. Next attention was turned to the talonavicular joint this was stabilized with a 5.5 screw and a staple. The calcaneus cuboid joints were then fused with a another 5.5 screw. This allowed very good correction of the foot however there was still some plantar flexion of the 1st ray. First TMT fusion. To address the 1st TMT plantar flexion the 1st TMT joint was exposed and the cartilage surfaces removed. The PPS saw was used to remove a dorsally based wedge for a dorsal closing wedge 1st TMT fusion to help lower the arch and correct the plantar flexed 1st ray. This was pinned provisionally in place checked on fluoroscopy and then drilled and fixed with a 24.0 solid screws. This provided excellent correction and fixation. Once this was completed final x-rays were obtained in the AP, axial lateral planes confirming appropriate alignment of the joints and fixation and hardware placement. Callus paring. There was a hard callus at the 5th metatarsal head this was reduced with a scalpel after the foot correction. At the end of the procedure tourniquet was released hemostasis was achieved. The wounds were closed with 0 Vicryl 2-0 Vicryl 4-0 Monocryl and 3-0 nylon. 0.25% Marcaine with epinephrine was injected as local anesthetic. A sterile dressing was placed with Xeroform gauze Webril ABD pads and bulky Sullivan cotton and a stirrup and posterior splint in neutral position. The patient was awoken from anesthesia and taken to recovery room in good condition there were no immediate complications from this procedure. Counts were correct. Complications: none Post-operative Condition: stable Disposition: PACU Plan for aftercare: Nonweightbearing or touchdown for balance on the right lower extremity 10-12 weeks postop. Aspirin 325 mg daily for DVT prophylaxis x6 weeks starting postoperative day 1 sHe will be admitted overnight for pain control. Catheter in the morning and go home morning She was already received her medications from clinic. She will follow up in the orthopedic clinic as scheduled.
[2024-05-30] MEDS: LACTATED RINGERS 1,000 ML 100 ML IV (17:18)
[2024-05-30] MEDS: OXcarbazepine 150 MG TABLET 600 MG PO (17:18)
[2024-05-30] MEDS: OXcarbazepine 150 MG TABLET 900 MG PO (20:58)
[2024-05-30] MEDS: LORazepam 0.5 MG TABLET 0.25 MG PO (20:58)
[2024-05-30] MEDS: SENNOSIDES 8.6 MG TABLET 17.2 MG PO (20:59)
[2024-05-30] MEDS: DOCUSATE 100 MG CAPSULE PO (20:59)
[2024-05-31] MEDS: CEFAZOLIN 2 GM/100 ML PREMIX 100 ML IV (04:03)
[2024-05-31] MEDS: LEVOTHYROXINE 125 MCG TABLET 250 MCG PO (05:19)
[2024-05-31 05:59] LABS: Add Manual Diff / Slide Review NO; Basophils Absolute Auto 0 /uL (0-100); Basophils Percent Auto 0.6 % (0-2); Eosinophils Absolute Auto 0 /uL (0-450); Eosinophils Percent Auto 0.4 % (2-4); Hemoglobin 11.7 g/dL (12.0-16.0); Lymphocytes Absolute Auto 500 /uL (1100-4500); Lymphocytes Percent Auto 8.7 % (25-40); Mean Corpuscular HGB Conc 34.4 % (30-36); Mean Corpuscular Hemoglobin 32.7 PG (26-34); Monocytes Absolute Auto 600 /uL (0-900); Monocytes Percent Auto 10.5 % (3-14); Neutrophils Absolute Auto 4600 /uL (1500-7000); Neutrophils Percent Auto 79.8 % (50-75); Platelet Count 265 X10^3/uL (150-400); Red Blood Cell Count 3.58 X10^6/uL (4.0-5.2); Red Cell Distribution Width 13.8 % (11.6-14.8); White Blood Cell Count 5.8 X10^3/uL (4.5-11.0)
[2024-05-31 06:15] LABS: BUN Creatinine Ratio 21.8 (6-22); Blood Urea Nitrogen 12 mg/dL (7-17); Calcium 8.4 mg/dL (8.4-10.2); Carbon Dioxide 25 mmol/L (22-32); Chloride 104 mmol/L (98-107); Estimated Glomerular Filt Rate > 60 mL/min (>60); Glucose 91 mg/dL (80-110); HEMOLYSIS < 15 (0-50); Potassium 3.7 mmol/L (3.4-5.1); Sodium 135 mmol/L (137-145)
--- NOTE | 2024-05-31 07:42 | PC.NURSE ---
@[phone] went in to Pt room for assessment. upon taking away the blankets I noticed bloody drainage from heel of Pt's operated right foot. drainage was on pillow and bed sheets. I called Dr. Urban @ [phone] and informed her of situation she was not alarmed and gave phone order to reinforce w/abd pad and angeli wrap which I did so @ [phone]
--- NOTE | 2024-05-31 07:56 | PM.DS.1 ---
History of Present Illness History of Present Illness Chief complaint: Right Ankle Fusion/Achilles Tendon Lengthening Narrative: Flor is a pleasant 58 year old female who is POD#1 s/p Discharge Providers Provider Discharge Date: 05/31/24 Primary care physician: Apolinar Monsivais DO Consults: 05/29/24 12:27 Consult to Anesthesiology Routine Comment: Consulting Provider: Anesthesiologist Reason for consultation: Surgeon requested re: Seizure Disorder 05/30/24 16:37 Consult to Discharge Planning Routine Comment: Consult to Occupational Therapy Evaluate & Treat Comment: Physician Instructions: Evaluate and treat Consult to Physical Therapy Evaluate & Treat Comment: nwbright foot can touchdown for balance Physician Instructions: Evaluate and Treat Discharge provider: Lavonne Clayton PA-C Exam Vital Signs (past 8 hours): Oxygen Delivery Method Room Air Oxygen Flow Rate 0 Objective Labs 05/31/24 05:15 05/31/24 05:15 Labs: Laboratory Results - last 24 hr 05/31/24 05:15 WBC 5.8 RBC 3.58 L Hgb 11.7 L Hct 34.0 L MCV 95.0 MCH 32.7 MCHC 34.4 RDW 13.8 Plt Count 265 Neut % (Auto) 79.8 H Lymph % (Auto) 8.7 L [place] % (Auto) 10.5 Eos % (Auto) 0.4 L Baso % (Auto) 0.6 Neut # (Auto) 4600 Lymph # (Auto) 500 L [place] # (Auto) 600 Eos # (Auto) 0 Baso # (Auto) 0 Sodium 135 L Potassium 3.7 Chloride 104 Carbon Dioxide 25 BUN 12 Creatinine 0.55 Estimated GFR > 60 BUN/Creatinine Ratio 21.8 Glucose 91 Calcium 8.4 [facility] Medical History (Updated 05/28/24 @ 14:57 by Kimberly Oneill RN) Anesthesia complication Preoperative cardiovascular examination Plantar wart of right foot Left knee DJD Distal radius fracture, left Radial head fracture 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, left Unspecified hearing loss (10/26/11) Localization-related (focal) (partial) symptomatic epilepsy and epileptic syndromes with simple partial seizures, intractable, without status epilepticus Cerebral palsy Lateral epicondylitis of left elbow Thyroid cancer Leukocytopenia, unspecified Sigmoid volvulus Meningitis Sprain of right thumb Surgical History (Updated 05/28/24 @ 14:55 by Kimberly Oneill RN) 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) S/P colon resection Hx of partial adrenalectomy (~12/2005) H/O right wrist surgery (~2012) History of arthroplasty of right knee History of total left hip arthroplasty Status post delivery Status post knee surgery Social History household members: spouse and family Smoking Status: Former smoker alcohol intake: current Discharge Plan Discharge Plan Patient Disposition: Home Discharge orders & Medications Prescriptions: No Action lorazepam 0.5 mg tablet 0.25 mg PO BID Qty: 30 5RF Hold Instructions: Needs to be seen in clinic levothyroxine 125 mcg tablet See Rx Instructions .ROUTE .COMPLEX Qty: 180 3RF Dose Instruction: take 2 tablets by mouth once daily Rx Instructions: take 2 tablets by mouth once daily carbamazepine 200 mg tablet See Rx Instructions .ROUTE .COMPLEX 90 Days Qty: 210 11RF Dose Instruction: Take 2 tabs every morning, 2 tabs at noon, and 3 tabs at bedtime. Rx Instructions: Take 2 tabs every morning, 2 tabs at noon, and 3 tabs at bedtime. celecoxib 200 mg capsule See Rx Instructions .ROUTE .COMPLEX Qty: 90 3RF Dose Instruction: take 1 capsule by mouth once daily Rx Instructions: take 1 capsule by mouth once daily Follow up/Referrals: Apolinar Monsivais, [Primary Care Provider] - Visit Report/Discharge Packet Stand Alone Forms: Patient Portal/API Discharge Data Primary Care Provider: Apolinar Monsivais Attending Provider: Belén Urban
[2024-05-31] MEDS: polyethylene glycoL 3350 17 GM POWD.PACK PO (08:07)
[2024-05-31] MEDS: ASPIRIN EC 81 MG TABLET 325 MG PO (08:08)
[2024-05-31] MEDS: OXcarbazepine 150 MG TABLET 600 MG PO ×2 (08:08→11:39)
[2024-05-31] MEDS: DOCUSATE 100 MG CAPSULE PO ×2 (08:08→20:25)
[2024-05-31] MEDS: CELECOXIB 200 MG CAPSULE PO (08:09)
[2024-05-31] MEDS: ACETAMINOPHEN 325 MG TABLET 650 MG PO ×2 (08:09→17:57)
[2024-05-31] MEDS: LORazepam 0.5 MG TABLET 0.25 MG PO (08:09)
[2024-05-31] MEDS: ONDANSETRON 4 MG/2 ML INJ IV (08:13)
--- NOTE | 2024-05-31 08:23 | CM.DANOTE ---
Initial DCP Assessment Visit Note Reviewed EMR and team rounds for status updates. Met with pt at bedside to introduce self and role, pt was sitting upright in bed, alert/oriented, able to discuss her plan for assistance at home postoperatively. Pt resides modified independently with her spouse in her own home here in [place]. Pt's spouse will transport her home once she's medically cleared for home d/c. Payor: Medicare Attending: Dr. Urban Pt is a 58 year-old F post-op day 1 from a complex fixation surgery of her R-foot deformity. Pt has limited mobility at baseline, uses a walker, wheelchair, and crutches as needed. Pt's pain block had not yet worn off this morning when this FRAME HAND met with her, and she does already have a discharge order. PT/OT pending evals later this morning. Pt denies any d/c assistance needs, and has a plan for OP PT, Ortho f/u appointments. DCP will continue to monitor for any further evolving needs prior to her departure. Discharge Planning/Care Management CM Discharge Assessment Start: 05/31/24 08:04 Freq: Status: Active Protocol: Document 05/31/24 08:04 DPL (Rec: 05/31/24 08:23 DPL [id number]) Discharge Planning Assessment Assigned Ship Officer VINNIE Stark Advance Directives? No: Declines further information History Provided By Patient,Medical Record Has Patient been admitted in last 30 No days? Prior Living Arrangements House Household Members spouse,family Type of transporation used prior to Drives own vehicle admit Independent with ADL's No: Modified independent with a walker, wheelchair, and crutches. Is patient alert and oriented? Yes Caregiver for Another No DME Already Rented / Owned Wheelchair,Elevated Toilet Seat,FWW / Walker,Crutches Patient/Family Preference OP PT Therapy Barriers to Discharge No Discharge Plan Home Referrals Initiated None needed Whiteboard Updated in Patient Room with Yes name and ext. # of Ship Officer Review Status In Process Please Provide Date Initial DC 05/31/24 Assessment Was Performed Pre-Anesthesia Assessment Start: 05/28/24 14:51 Freq: Status: Active Protocol: Document 05/28/24 14:51 CAB (Rec: 05/28/24 15:01 CAB [id number]) Pre-Anesthesia Assessment PAC Comment Chart review Patient Information Reviewed Via Chart Review Primary Care Provider Apolinar Monsivais Seen Specialist in Last 12 Months Yes Specialist Seen Emergency,Orthopedist Primary Language Greenlandic Preferred Language Greenlandic Buying Agent Required No Height 175.26 cm Weight 90.718 kg Body Mass Index (BMI) 29.5 Hx Anesthesia Reactions Yes: Nausea, It takes me a long time to come out of it Hx Family Anesthesia Reaction No Hx Malignant Hyperthermia No Hx Blood Transfusions No Anesthesia Review Requested Yes: Surgeon requested re: Seizure disorder Pipe Finishing Supervisor No alcohol intake current alcohol intake frequency 0 drinks per day Smoking Status Former smoker Mental Status Oriented to own ability Comment Hx of cerebral palsy Does patient have GILMORE/SOB No Hx Sleep Apnea No CPAP/BIPAP use not prescribed Currently Taking a Beta Deloris No Hx Chest Pain No Hx SOB No Hx Syncope or Dizziness No Anti-Coagulant Therapy No Cardiac Testing No Hx Pacemaker/ICD No Pacemaker Rep Required? No Cardiac Clearance Received No Hx Urinary Self Catheterization No Diabetes No Patient No Lactating No Hx Drug Resistant Organism No Presence of External or Internal Medical Yes: Shaquille hip, right knee Devices prosthesis, right wrist hardware Marital Status Lives With spouse,family Patient Discharge Plan Description Return Home Do You Have Any Spiritual Beliefs That No May Affect Your HC Choices? Do You Have Any Cultural Practices That No May Affect Your HC Choices? Emergency Contact Name Sincere () Yarelis (sister) Emergency Contact Phone Number Sincere: [phone] Yarelis: Advance Directives? No: Declines further information Power of [place] No
--- NOTE | 2024-05-31 09:12 | PT.IIE ---
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) Surgery Performed Operation Date: 05/30/24 11:15 Actual Procedures p RIGHT hindfoot fusion (triple arthrodesis)(Right) - Belén Urban MD s Tendon Achilles lengthening, 1st TMT fusion, posterior tibialis tendon release, modifier 22, callous mendoza(Right) - Belén Urban MD Surgical History (Last Updated 05/28/24 @ 14:55 by Kimberly Oneill RN) H/O right wrist surgery (~2012) History of arthroplasty of right knee History of total left hip arthroplasty 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) Hx of partial adrenalectomy (~12/2005) S/P colon resection Status post delivery Status post knee surgery Medical History (Last Updated 05/28/24 @ 14:57 by Kimberly Oneill, RN) Anesthesia complication Cerebral palsy 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, left Distal radius fracture, left Lateral epicondylitis of left elbow Left knee DJD Leukocytopenia, unspecified Localization-related (focal) (partial) symptomatic epilepsy and epileptic syndromes with simple partial seizures, intractable, without status epilepticus Meningitis Osteoarthritis of CMC joint of thumb Plantar wart of right foot Preoperative cardiovascular examination Radial head fracture Sigmoid volvulus Sprain of right thumb Thyroid cancer Unspecified hearing loss (10/26/11) Physical Therapy Inpatient Evaluation/Re-Eval M1 PT/OT-IP Prior Functional Status Start: 05/31/24 08:01 Freq: NEEDED Status: Active Protocol: Document 05/31/24 08:07 HALEY (Rec: 05/31/24 09:12 HALEY [id number]) Medical Review Prior Functional Status Medical History Reviewed Yes Diet/Fluid Consistency Regular Communication Answers most questions but not all Mobility and Gait Pt reports I at baseline and drove, she states that neither she nor her work and he will assist her at baseline Activities of Daily Living and IADL's I Social History Household Members spouse,family Living Arrangements House Number of Floors (Floors) One Floor Number of Stairs To Enter/Railing? 2 steps with left rail ascend to enter Home Environment Standard Height Toilet,Walk in Shower Home Equipment Four Wheel Walker,Straight Cane,Crutches,Manual Wheelchair,Bedside Commode, Shower Seat with Backrest Employment Status Unemployed M2 PT-IP Current Condition Start: 05/31/24 08:01 Freq: NEEDED Status: Active Protocol: Document 05/31/24 08:07 MB (Rec: 05/31/24 09:12 MB [id number]) Physical Therapy Current Condition Current Condition Evaluation Date 05/31/24 Treatment Diagnosis R ankle fusion M3 PT-IP Subjective Start: 05/31/24 08:01 Freq: NEEDED Status: Active Protocol: Document 05/31/24 08:07 MB (Rec: 05/31/24 09:12 MB [id number]) Subjective Physical Therapy Visit Type Type Initial Evaluation Visit Start Time 08:07 Visit Stop Time 08:35 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 Therapy Pain Assessment Pain When Pain Assessed At Rest Pain Present Pain Present Denied Pain M4 PT-IP Mobility and Gait Start: 05/31/24 08:01 Freq: NEEDED Status: Active Protocol: Document 05/31/24 08:07 MB (Rec: 05/31/24 09:12 MB [id number]) PT-Bed Mobility Assessment Supine to Sit Supine to Sit Standby Assistance,1 Person Assistance,Head of Bed Elevated,Bedrails Sit to Supine Sit to Supine Standby Assistance,1 Person Assistance,Head of Bed Elevated,Bedrails Scooting Scooting to Edge of Bed Standby Assistance Scooting Up and Down in Bed Standby Assistance PT-Transfer Assessment Sit to and From Stand Sit to and from Stand Minimal Assistance,1 Person Assistance,Use of Upper Extremities Equipment Transfer Assistive Device Gait Belt,Front Wheeled Walker Orthotic/Prosthetic Devices or Brace: No Comments Mobility Comments Pt is unable to keep right foot off the ground and given bleeding through cast and increased body mass and two different orders for WB, PT does not feel comfortable with TDWB right LE for pt. Pt is unable to stand full upright with walker. Pt is able to scoot to the left sitting EOB with right foot off the ground and use of left foot and B hands PT-Balance Assessment Sitting Balance and Reactions Static Sitting Balance Ability Good Dynamic Sitting Balance Ability Fair Standing Balance and Reactions Static Standing Balance Ability Poor Dynamic Standing Balance Ability Poor M5 PT-IP Objective Assessments Start: 05/31/24 08:01 Freq: NEEDED Status: Active Protocol: Document 05/31/24 08:07 MB (Rec: 05/31/24 09:12 [id number]) Orientation Orientation/Cognition Level of Alertness Alert Orientation Name,Age,Birthday,Month,Date, Year,Day of Week,Place, Situation Language Function Ability No Deficits Noted Safety Awareness Decreased Safety Awareness Comments Decreased information provided by pt about baseline. She has occ writhing type movements of right greater than left hand/arm and pants/whimpers with movement rather than making verbalizations Gross Range of Motion Upper Extremity ROM Impairments Pt reports she gets injections in left elbow and wrist every few months from Dr. Olivera Lower Extremity ROM Assessment Right Impaired Impairments Right ankle in cast Strength Lower Extremity Strength Assessment Right Impaired Coordination Assessment Assessment Coordination Comments Writhing-type movements in B UEs with scooting to EOB Sensation Assessment Comments Sensation Comments Pt reports she is getting tingling in right toes this a. m. M7 PT-IP Assessment and Plan Start: 05/31/24 08:01 Freq: NEEDED Status: Active Protocol: Document 05/31/24 08:07 MB (Rec: 05/31/24 09:12 [id number]) PT Summary Assessment and Plan Potential Rehabilitation Potential Fair Status of Condition at Evaluation Unstable Summary Impairments Pain,ROM,Strength,Balance, Coordination,Sensation,Tone, Bed Mobility,Transfers,Gait, Activity Tolerance Progress Towards Goals Slow Progress due to Activity Tolerance,Slow Progress - Other Assessment Summary Pt is a 58 y/o female presenting POD1 right ankle fusion and pt in cast/splint and bleeding through heel of cast, where she is WB on pillow with legs elevated in bed. Pt's communication and motor presentation are atypical and pt presents with writhing type movements in arms with functional mobility and occ panting/whimpering with mobility. She states she is cold. She is unable to maintain NWB RLE and PT does not feel comfortable in teaching TDWB given two different orders for WB (WB order says NWB and PT order states NWB to TDWB), pt body mass, and active bleeding. Con 't PT efforts for mobility training. Recommend OOB to chair with total lift and nsg. Pt may need SNF at d/c. Goals Bed Mobility Goal Independent Transfer Goal Standby Assistance,Front Wheeled Walker Gait Goal Standby Assistance,Front Wheel Walker Gait Distance 25 Other Goals Pt will ascend and descend 2 steps with left rail ascend or bumping up steps with no more than CGA to allow safe home entrance. Days to Meet Goals 5 Frequency of Treatment Other frequency 1-2x/day Treatment Plan Physical Therapy Treatment Plan Bed Mobility Training,Transfer Training,Gait Training, Therapeutic Exercise,Balance Retraining,Post Op Education, Discharge Planning,Hot or Cold Pack,Neuromuscular Re-ed, Coordination Retraining,Manual Therapy Weight Bearing Status Weight Bearing Status Non-Weight Bearing Allowed Weight Bearing Amount (enter % RLE, there is another order or #) (%) that also states can be TDWB for balance Recommendations To Nursing Amount of Assist Needed Mechanical Lift Discharge Recommendations PT Discharge Recommendations SNF Rehab Transportation Needs at Discharge Wheelchair/Cabulance
[2024-05-31 10:34] VITALS: BP 117/76; PULSE 75; RESP 20; TEMP 36.8; O2SAT 100
[2024-05-31] MEDS: OXYCODONE IR 5 MG TABLET PO ×2 (10:53→20:24)
--- NOTE | 2024-05-31 11:41 | PM.PNPO.1 ---
Subjective Subjective Interval history: Flor is a pleasant 58-year-old female who is postop # 1 status post right foot triple arthrodesis, calcaneus osteotomy, First tarsometatarsal arthrodesis, Percutaneous tendo-Achilles lengthening, posterior tibialis tendon release by Dr. Urban. This morning patient reports that she is doing well, her pain is moderate at rest but gets intense at time, Oxycodone seems to be working well for her for pain control. She states she has not worked w/ PT yet so she has not been out of bed. She still has Franklin catheter in place since she has not practiced getting to the bathroom yet. She plans to d/c to home, she will have some support at home from her , they only have 2 steps into the house. Denies fever, chills, chest pain, SOB, nausea, vomiting. She does admit to feeling queasy this morning but reports it has now resolved. Exam Vital Signs (past 8 hours): - 05/31/24 10:34 Temperature 98.3 F Pulse Rate 75 Respiratory Rate 20 Blood Pressure 117/76 Pulse Oximetry 100 Oxygen Flow Rate 0 Oxygen Delivery Method Room Air Oxygen Flow Rate 0 Narrative Exam Narrative: Patient lying comfortably in bed during our interview today. No acute distress. AOx3. Wiggles all toes. Gross sensation intact throughout bilateral lower extremities. Brisk capillary refill of toes. Bulky post-surgical dressing dressing clean, dry and intact over the right foot w/ no current visible drainage. Objective Labs 05/31/24 05:15 05/31/24 05:15 Labs: Laboratory Results - last 24 hr 05/31/24 05:15 WBC 5.8 RBC 3.58 L Hgb 11.7 L Hct 34.0 L MCV 95.0 MCH 32.7 MCHC 34.4 RDW 13.8 Plt Count 265 Neut % (Auto) 79.8 H Lymph % (Auto) 8.7 L [place] % (Auto) 10.5 Eos % (Auto) 0.4 L Baso % (Auto) 0.6 Neut # (Auto) 4600 Lymph # (Auto) 500 L [place] # (Auto) 600 Eos # (Auto) 0 Baso # (Auto) 0 Sodium 135 L Potassium 3.7 Chloride 104 Carbon Dioxide 25 BUN 12 Creatinine 0.55 Estimated GFR > 60 BUN/Creatinine Ratio 21.8 Glucose 91 Calcium 8.4 PFSH Medical History (Updated 05/28/24 @ 14:57 by Kimberly Oneill, RN) Anesthesia complication Preoperative cardiovascular examination Plantar wart of right foot Left knee DJD Distal radius fracture, left Radial head fracture 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, left Unspecified hearing loss (10/26/11) Localization-related (focal) (partial) symptomatic epilepsy and epileptic syndromes with simple partial seizures, intractable, without status epilepticus Cerebral palsy Lateral epicondylitis of left elbow Thyroid cancer Leukocytopenia, unspecified Sigmoid volvulus Meningitis Sprain of right thumb Surgical History (Updated 05/28/24 @ 14:55 by Kimberly Oneill, RN) 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) S/P colon resection Hx of partial adrenalectomy (~12/2005) H/O right wrist surgery (~2012) History of arthroplasty of right knee History of total left hip arthroplasty Status post delivery Status post knee surgery Social History household members: spouse and family Smoking Status: Former smoker alcohol intake: current Assessment & Plan Post-op Postoperative Procedures: Procedures Operation Date: 05/30/24 11:15 Actual Procedure Side Surgeon p RIGHT hindfoot fusion (triple arthrodesis) Right Belén Urban MD s Tendon Achilles lengthening, 1st TMT fusion, posterior tibialis tendon release, modifier 22, callous mendoza Right Belén Urban MD Postoperative plan narrative: 1) Plan to discharge to home today or tomorrow morning pending progress w/ PT and pain control. 2) Continue multimodal pain management with ice to the foot/ankle for additional pain control. She has already received her post-op pain medications from clinic. 3) Aspirin 325 mg daily for DVT prophylaxis x6 weeks 4) Nonweightbearing or touchdown for balance on the right lower extremity 10-12 weeks postop. I would like patient to work w/ PT today on safe ambulation w/ assistive devices while NWB so we can remove her Franklin catheter this afternoon/evening and possibly d/c to home. 5) Keep dressing intact, clean, dry until 2 week postop appointment. No soaking the incision site in pools or tubs. No topical ointments or creams to the incision site. 6) Follow up at [facility] orth[facility]ics in 2 weeks for a postop appointment and wound check. All patient's questions were answered, she demonstrates understanding and is in agreement with the plan. Call our office if any questions or concerns arise.
--- NOTE | 2024-05-31 13:00 | PT.IPTN ---
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) Surgery Performed Operation Date: 05/30/24 11:15 Actual Procedures p RIGHT hindfoot fusion (triple arthrodesis)(Right) - Belén Urban MD s Tendon Achilles lengthening, 1st TMT fusion, posterior tibialis tendon release, modifier 22, callous mendoza(Right) - Belén Urban MD Physical Therapy Treatment Note M2 PT-IP Current Condition Start: 05/31/24 08:01 Freq: NEEDED Status: Active Protocol: Document 05/31/24 08:07 MB (Rec: 05/31/24 09:12 MB [id number]) Physical Therapy Current Condition Current Condition Evaluation Date 05/31/24 Treatment Diagnosis R ankle fusion M3 PT-IP Subjective Start: 05/31/24 08:01 Freq: NEEDED Status: Active Protocol: Document 05/31/24 13:49 TS (Rec: 05/31/24 14:08 TS [id number]) Subjective Physical Therapy Visit Type Type Treatment Note Visit Start Time 13:00 Visit Stop Time 13:30 Number of AMBULATORY SERVICES REPRESENTATIVE Visits 1 Physical Therapy Visit Comments Patient Comments Pt found resting in the bed, she is agreeable to PT. M4 PT-IP Mobility and Gait Start: 05/31/24 08:01 Freq: NEEDED Status: Active Protocol: Document 05/31/24 13:49 TS (Rec: 05/31/24 14:08 TS [id number]) PT-Bed Mobility Assessment Supine to Sit Supine to Sit Standby Assistance,1 Person Assistance,Head of Bed Elevated,Bedrails Scooting Scooting to Edge of Bed Standby Assistance PT-Transfer Assessment Sit to and From Stand Sit to and from Stand Maximum Assistance,1 Person Assistance,Use of Upper Extremities Equipment Transfer Assistive Device Gait Belt,Front Wheeled Walker Orthotic/Prosthetic Devices or Brace: No Transfers Transfer Destination Chair Transfer Technique Squat Pivot Transfer Ability Level of Assist Maximum Assistance,2 Person Assistance Comments Mobility Comments Supine to sit SBA, pt brings LLE to EOB. STS with FWW MaxA, pt unable to maintain NWB on LLE. Attempted use of crutches MaxA, pt continus to not maintain NWB. Squat pivot to the chair MaxA x2, cues provided for sequencing, requries LLE held in air. Pt was left in the chair, all needs met. Gait Assessment Comments Gait Comments Squat pivot PT-Balance Assessment Sitting Balance and Reactions Static Sitting Balance Ability Good Dynamic Sitting Balance Ability Fair Standing Balance and Reactions Static Standing Balance Ability Poor Dynamic Standing Balance Ability Poor Device Used FWW/Crutches M5 PT-IP Objective Assessments Start: 05/31/24 08:01 Freq: NEEDED Status: Active Protocol: Document 05/31/24 08:07 MB (Rec: 05/31/24 09:12 MB [id number]) Orientation Orientation/Cognition Level of Alertness Alert Orientation Name,Age,Birthday,Month,Date, Year,Day of Week,Place, Situation Language Function Ability No Deficits Noted Safety Awareness Decreased Safety Awareness Comments Decreased information provided by pt about baseline. She has occ writhing type movements of right greater than left hand/arm and pants/whimpers with movement rather than making verbalizations Gross Range of Motion Upper Extremity ROM Impairments Pt reports she gets injections in left elbow and wrist every few months from Dr. Olivera Lower Extremity ROM Assessment Right Impaired Impairments Right ankle in cast Strength Lower Extremity Strength Assessment Right Impaired Coordination Assessment Assessment Coordination Comments Writhing-type movements in B UEs with scooting to EOB Sensation Assessment Comments Sensation Comments Pt reports she is getting tingling in right toes this a. m. M7 PT-IP Assessment and Plan Start: 05/31/24 08:01 Freq: NEEDED Status: Active Protocol: Document 05/31/24 13:49 TS (Rec: 05/31/24 14:08 TS [id number]) PT Summary Assessment and Plan Potential Rehabilitation Potential Fair Summary Impairments Pain,ROM,Strength,Balance, Coordination,Sensation,Tone, Bed Mobility,Transfers,Gait, Activity Tolerance Progress Towards Goals Slow Progress due to Activity Tolerance,Slow Progress - Other Assessment Summary Flor continues to make slow progress with her mobility. She requires MaxA for STS with use of FWW or crutches. Pt is unable to maintain NWBering on LLE for STS and transfers. PT continues to recommend SNF. Goals Bed Mobility Goal Independent Transfer Goal Standby Assistance,Front Wheeled Walker Gait Goal Standby Assistance,Front Wheel Walker Gait Distance 25 Other Goals Pt will ascend and descend 2 steps with left rail ascend or bumping up steps with no more than CGA to allow safe home entrance. Days to Meet Goals 5 Frequency of Treatment Other frequency 1-2x/day Treatment Plan Physical Therapy Treatment Plan Bed Mobility Training,Transfer Training,Gait Training, Therapeutic Exercise,Balance Retraining,Post Op Education, Discharge Planning,Hot or Cold Pack,Neuromuscular Re-ed, Coordination Retraining,Manual Therapy Weight Bearing Status Weight Bearing Status Non-Weight Bearing Allowed Weight Bearing Amount (enter % NWB for RLE, surgeon does or #) (%) write in chart can touch down for balance- pt unable to follow to to do NWB. Recommendations To Nursing Amount of Assist Needed Mechanical Lift Discharge Recommendations PT Discharge Recommendations SNF Rehab Equipment Needed for Home Before If pt ends up going home and Discharge not to SNF, will need RW for d /c Transportation Needs at Discharge Wheelchair/Cabulance
--- NOTE | 2024-05-31 13:40 | OT.IP.EVAL ---
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, left Distal radius fracture, left Lateral epicondylitis of left elbow Left knee DJD Leukocytopenia, unspecified Localization-related (focal) (partial) symptomatic epilepsy and epileptic syndromes with simple partial seizures, intractable, without status epilepticus Meningitis Osteoarthritis of CMC joint of thumb Plantar wart of right foot Preoperative cardiovascular examination Radial head fracture Sigmoid volvulus Sprain of right thumb Thyroid cancer Unspecified hearing loss (10/26/11) Surgical History (Last Updated 05/28/24 @ 14:55 by Kimberly Oneill RN) H/O right wrist surgery (~2012) History of arthroplasty of right knee History of total left hip arthroplasty 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) Hx of partial adrenalectomy (~12/2005) S/P colon resection Status post delivery Status post knee surgery Occupational Therapy Inpatient Evaluation/Re-Eval M1 PT/OT-IP Prior Functional Status Start: 05/31/24 08:01 Freq: NEEDED Status: Active Protocol: Document 05/31/24 13:42 [facility] (Rec: 05/31/24 14:04 [facility] [id number]) Medical Review Prior Functional Status Medical History Reviewed Yes Diet/Fluid Consistency Regular Communication Answers most questions but not all Mobility and Gait Pt reports I at baseline and drove, she states that neither she nor her work and he will assist her at baseline Activities of Daily Living and IADL's I Social History Household Members spouse,family Living Arrangements House Number of Floors (Floors) One Floor Number of Stairs To Enter/Railing? 2 steps with left rail ascend to enter Home Environment Standard Height Toilet,Walk in Shower Home Equipment Four Wheel Walker,Straight Cane,Crutches,Manual Wheelchair,Bedside Commode, Shower Seat with Backrest Employment Status Unemployed M2 OT-IP Current Condition Start: 05/31/24 13:41 Freq: Status: Active Protocol: Document 05/31/24 13:42 [facility] (Rec: 05/31/24 14:04 [facility] [id number]) Occupational Therapy Current Condition Current Condition Evaluation Date 05/31/24 Treatment Diagnosis Right ankle fusion Diagnosis Onset Date 05/30/24 Weight Bearing Status Weight Bearing Status Non-Weight Bearing Allowed Weight Bearing Amount (enter % NWB for RLE, surgeon does or #) (%) write in chart can touch down for balance- pt unable to follow to to do NWB. M3 OT- IP Subjective and Pain Start: 05/31/24 13:41 Freq: Status: Active Protocol: Document 05/31/24 13:42 [facility] (Rec: 05/31/24 14:04 [facility] [id number]) OT- Subjective Occupational Therapy Visit Type Type Initial Evaluation Visit Start Time 13:00 Visit Stop Time 13:40 Occupational Therapy Visit Comments Patient Comments Pt agreed to get up. Patient/Caregiver Goals TO get better and open to going to skilled rehab. OT Pain Assessment Pain When Pain Assessed During Mobility Pain Present Pain Present Pain Reported Location Right Hip Intensity 3 Scale Used Numeric (0 - 10) M4 OT- IP ADL's Start: 05/31/24 13:41 Freq: Status: Active Protocol: Document 05/31/24 13:42 [facility] (Rec: 05/31/24 14:04 [facility] [id number]) OT [id number] Comments OT Self-Feeding Comments Not at meal time. OT ADL-Grooming General Evaluation Grooming Ability Standby Assistance Areas Needing Assistance Retrieving/Set-up of Grooming Items Comments OT Grooming Comments Set-up while seated. OT ADL-Oral Care General Eval Oral Care Ability Standby Assistance Comments Oral Care Comments Set-up , vc to look to the left for the cup to rinse. OT ADL-Dressing General Eval Lower Body Dressing Ability Total Assistance Areas Needing Assistance Socks,Shoes OT ADL-Toileting General Evaluation Toileting Ability Total Assistance Areas Needing Assistance Empty Catheter or Colostomy OT ADL-Bathing Comments OT Bathing Comments Sponge bath more appropriate at this time. M5 OT- IP IADL's Start: 05/31/24 13:41 Freq: Status: Active Protocol: Document 05/31/24 13:42 [facility] (Rec: 05/31/24 14:04 [facility] [id number]) OT-Instrumental Activities of Daily Living Home Safety Awareness Home Safety Comments Pt is a bit impulsive and needing cues to slow down. At this time pt will need assist for all needs. M6 OT- IP Functional Cognition Start: 05/31/24 13:41 Freq: Status: Active Protocol: Document 05/31/24 13:42 [facility] (Rec: 05/31/24 14:04 [facility] [id number]) Cognitive Factors Limiting Selfcare Function Cognitive Ability Level of Alertness Alert Patient Orientation Name,Place,Situation Attention Span Ability Capable of Focused Attention, Capable of Sustained Attention Safety Awareness Underestimates Need for Assistance Cognitive Comments Cognitive Assessment Comments Pt is a bit impulsive and needing simple cues to follow. Continue to assess her cognition. OT- Vision and Hearing OT- Hearing Assessment OT- Hearing Assessment WFL OT- Vision Assessment Visual Acuity Glasses All The Time Visual Attentiveness WFL Occular Pursuits WFL M7 OT- IP Mobility and Balance Start: 05/31/24 13:41 Freq: Status: Active Protocol: Document 05/31/24 13:42 [facility] (Rec: 05/31/24 14:04 [facility] [id number]) OT- Bed Mobility Assessment Supine to Sit Supine to Sit Assist Standby Assistance OT-Transfer Assessment Sit to and From Stand Sit to and from Stand Maximum Assistance,2 Person Assistance Transfers Transfer Ability Maximum Assistance,2 Person Assistance Technique Transfer Destination Bed,Chair Transfer Technique Squat Pivot Devices Transfer Assistive Devices Gait Belt Comments Mobility Comments SBA for pt to get to the edge of the bed. MAX AX 2 to stand to the FWW and pt not able to maintain NBW to the RLE x3. Opted to try squat pivot of use of the sliding board. Pt already trying to stand and able to assist her with MAX AX 2 squat pivot to the recliner , one person for balance and other to hold her RLE up. OT- Balance Assessment Sitting Balance and Reactions Static Sitting Balance Ability Normal Dynamic Sitting Balance Ability Good Standing Balance and Reactions Static Standing Balance Ability Poor Dynamic Standing Balance Ability Poor M8 OT- IP Objective Assessments Start: 05/31/24 13:41 Freq: Status: Active Protocol: Document 05/31/24 13:42 [facility] (Rec: 05/31/24 14:04 [facility] [id number]) OT Gross Range of Motion Upper Extremity Range of Motion ROM Impairments Grossly WFL, limited at end ROM and pt tends to internally rotate her shoulders R>L in over to get them about her head. OT Strength Comments Strength Comments Not formally tested, at least 3+/5. OT- Coordination Assessment Upper Extremity Finger to Nose Test Within Functional Limits M9 OT- IP Assessment and Plan Start: 05/31/24 13:41 Freq: Status: Active Protocol: Document 05/31/24 13:42 [facility] (Rec: 05/31/24 14:04 [facility] [id number]) OT Summary Assessment and Plan Potential Rehabilitation Potential Good Analytic Complexity at Evaluation Moderate Summary OT Impairments Pain,Strength,Balance, Coordination,Functional Cognition,Functional Mobility, Self-Feeding,Grooming,Dressing ,Toileting,Bathing,Toilet Transfers,Shower Transfers, Activity Tolerance Progress Towards Goals Slow Progress due to Pain,Slow Progress due to Medical Issues,Slow Progress due to Activity Tolerance,Slow Progress due to Cognition Assessment Summary Pt MOD complexity and main barriers are steps, pain, and unable to maintain the RLE NWB at this time and therefore not able to safety transfer and best to use darien lift especially for nursing staff. Therapy to continue to work on safest way to assist with her transfers for ADL and mobility needs. AT this time best for pt to go to skilled rehab prior to going home. Goals Self-Feeding Goal Independent Grooming Goal Independent Dressing Goal Minimal Assistance Toileting Goal Independent Bathing Goal Minimal Assistance Toilet Transfer Goal Standby Assistance Shower Transfer Goal Minimal Assistance Days to Meet Goals 25 Frequency of Treatment Other frequency 5x/week Treatment Plan OT Treatment Plan ADL Training,Functional Cognition Training,Functional Mobility,Patient/Family Education,Discharge Planning Other Treatment Recommendations and Next Transfer to drop arm commode Treatment Focus with sliding board with MOD A x2 Discharge Recommendations OT Discharge Recommendations SNF Rehab Transportation Needs at Discharge Wheelchair/Cabulance
--- NOTE | 2024-05-31 14:42 | CM.DPNOTE ---
Addendum entered by VINNIE Shaikh 05/31/24 14:50: ADD: Call received from spouse Sicnere, discussed discharge plan. Spouse states I know nothing about that and my would know more than me ; suspect either developmental delay or cognitive impairment (?) based on this call. Spouse anticipates being in the hospital tomorrow around 1000, will try and be at bedside tomorrow to discuss discharge options with both patient and spouse present. Original Note: DCP Cont Therapies recommending SNF at discharge. Met w/patient to review dispo options and patient presents as pleasant but confused, telling this WALLCOVERING TEXTURER multiple times that she has been to outpatient PT in the past. Patient asks that this WALLCOVERING TEXTURER contact her mother to discuss discharge planning further. Attempted calls to mom Elaine and spouse Sincere, LM with spouse requesting CB. CM team following closely for coordination of discharge plan. LAMBERTO
[2024-05-31] MEDS: OXcarbazepine 150 MG TABLET 900 MG PO (20:24)
[2024-05-31] MEDS: SENNOSIDES 8.6 MG TABLET 17.2 MG PO (20:25)
[2024-05-31 20:33] VITALS: BP 119/75; PULSE 79; RESP 18; TEMP 38.4; O2SAT 95
[2024-05-31 21:30] VITALS: TEMP 36.8
[2024-06-01] MEDS: OXYCODONE IR 5 MG TABLET PO ×2 (03:40→20:46)
[2024-06-01] MEDS: ACETAMINOPHEN 325 MG TABLET 650 MG PO ×3 (03:40→18:24)
[2024-06-01] MEDS: LEVOTHYROXINE 125 MCG TABLET 250 MCG PO (06:05)
[2024-06-01] MEDS: polyethylene glycoL 3350 17 GM POWD.PACK PO (08:03)
[2024-06-01] MEDS: DOCUSATE 100 MG CAPSULE PO ×2 (08:03→20:44)
[2024-06-01] MEDS: OXcarbazepine 150 MG TABLET 600 MG PO ×2 (08:04→11:47)
[2024-06-01] MEDS: ASPIRIN EC 81 MG TABLET 325 MG PO (08:04)
[2024-06-01] MEDS: CELECOXIB 200 MG CAPSULE PO (08:04)
[2024-06-01 09:00] VITALS: BP 130/66; PULSE 81; RESP 16; TEMP 36.9; O2SAT 95
--- NOTE | 2024-06-01 10:15 | PT.IPTN ---
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) Surgery Performed Operation Date: 05/30/24 11:15 Actual Procedures p RIGHT hindfoot fusion (triple arthrodesis)(Right) - Belén Urban MD s Tendon Achilles lengthening, 1st TMT fusion, posterior tibialis tendon release, modifier 22, callous mendoza(Right) - Belén Urban MD Physical Therapy Treatment Note M2 PT-IP Current Condition Start: 05/31/24 08:01 Freq: NEEDED Status: Active Protocol: Document 05/31/24 08:07 MB (Rec: 05/31/24 09:12 [facility] [id number]) Physical Therapy Current Condition Current Condition Evaluation Date 05/31/24 Treatment Diagnosis R ankle fusion M3 PT-IP Subjective Start: 05/31/24 08:01 Freq: NEEDED Status: Active Protocol: Document 06/01/24 10:46 TS (Rec: 06/01/24 10:56 TS [id number]) Subjective Physical Therapy Visit Type Type Treatment Note Visit Start Time 10:15 Visit Stop Time 10:45 Number of CNC MILLING MACHINIST Visits 2 Physical Therapy Visit Comments Patient Comments Pt found resting in the chair, she would like to try crutches again this morning. M4 PT-IP Mobility and Gait Start: 05/31/24 08:01 Freq: NEEDED Status: Active Protocol: Document 06/01/24 10:46 TS (Rec: 06/01/24 10:56 TS [id number]) PT-Transfer Assessment Sit to and From Stand Sit to and from Stand Maximum Assistance,2 Person Assistance,Use of Upper Extremities Equipment Transfer Assistive Device Gait Belt,Front Wheeled Walker Orthotic/Prosthetic Devices or Brace: No Comments Mobility Comments Pt performs STS MaxA x2 from the chair with cues for pushing from arms of the chair . Pt requires RLE held off the ground. She attempts to transition to the crutches but due to weakness and poor balance she is unable, she requires to sit back in the chair. Pt attempts squat pivot to the w/c MaxA x2, could not complete transfer and requries to sit back in the chair. Pt was left in the chair, all needs met. PT-Balance Assessment Sitting Balance and Reactions Static Sitting Balance Ability Good Dynamic Sitting Balance Ability Fair Standing Balance and Reactions Static Standing Balance Ability Poor Dynamic Standing Balance Ability Poor Device Used FWW/Crutches M5 PT-IP Objective Assessments Start: 05/31/24 08:01 Freq: NEEDED Status: Active Protocol: Document 05/31/24 08:07 MB (Rec: 05/31/24 09:12 MB [id number]) Orientation Orientation/Cognition Level of Alertness Alert Orientation Name,Age,Birthday,Month,Date, Year,Day of Week,Place, Situation Language Function Ability No Deficits Noted Safety Awareness Decreased Safety Awareness Comments Decreased information provided by pt about baseline. She has occ writhing type movements of right greater than left hand/arm and pants/whimpers with movement rather than making verbalizations Gross Range of Motion Upper Extremity ROM Impairments Pt reports she gets injections in left elbow and wrist every few months from Dr. Olivera Lower Extremity ROM Assessment Right Impaired Impairments Right ankle in cast Strength Lower Extremity Strength Assessment Right Impaired Coordination Assessment Assessment Coordination Comments Writhing-type movements in B UEs with scooting to EOB Sensation Assessment Comments Sensation Comments Pt reports she is getting tingling in right toes this a. m. M7 PT-IP Assessment and Plan Start: 05/31/24 08:01 Freq: NEEDED Status: Active Protocol: Document 06/01/24 10:46 TS (Rec: 06/01/24 10:56 TS [id number]) PT Summary Assessment and Plan Potential Rehabilitation Potential Fair Summary Impairments Pain,ROM,Strength,Balance, Coordination,Sensation,Tone, Bed Mobility,Transfers,Gait, Activity Tolerance Progress Towards Goals Slow Progress due to Activity Tolerance,Slow Progress - Other Assessment Summary Flor continues to make slow progress with her mobility. She attempts STS with crutches but is unable to stay balanced and keep RLE off the ground. She also sttempted squat pivot from chair to w/c but was unable to complete safely. PT is recommending SNF rehab at this time. Goals Bed Mobility Goal Independent Transfer Goal Standby Assistance,Front Wheeled Walker Gait Goal Standby Assistance,Front Wheel Walker Gait Distance 25 Other Goals Pt will ascend and descend 2 steps with left rail ascend or bumping up steps with no more than CGA to allow safe home entrance. Days to Meet Goals 5 Frequency of Treatment Other frequency 1-2x/day Treatment Plan Physical Therapy Treatment Plan Bed Mobility Training,Transfer Training,Gait Training, Therapeutic Exercise,Balance Retraining,Post Op Education, Discharge Planning,Hot or Cold Pack,Neuromuscular Re-ed, Coordination Retraining,Manual Therapy Weight Bearing Status Weight Bearing Status Non-Weight Bearing Allowed Weight Bearing Amount (enter % NWB for RLE, surgeon does or #) (%) write in chart can touch down for balance- pt unable to follow to to do NWB. Recommendations To Nursing Amount of Assist Needed Mechanical Lift Discharge Recommendations PT Discharge Recommendations SNF Rehab Equipment Needed for Home Before If pt ends up going home and Discharge not to SNF, will need RW for d /c Transportation Needs at Discharge Wheelchair/Cabulance
--- NOTE | 2024-06-01 10:45 | CM.DPC ---
DCP Cont. Reviewed EMR and team rounds for status updates. Plan is for pt to go to SNF Rehab. [facility] can accept. Called pt's sister, Yarelis, per patient's request. Pt had stated that her sister would take care of her at d/c, however after speaking with Yarelis, she is not able to manage pt's care at this time. Per [facility], they can likely take her on Saturday 06/02, they will confirm with us later today.
--- NOTE | 2024-06-01 10:47 | OT.IP.TRT ---
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) Surgery Performed Operation Date: 05/30/24 11:15 Actual Procedures p RIGHT hindfoot fusion (triple arthrodesis)(Right) - Belén Urban MD s Tendon Achilles lengthening, 1st TMT fusion, posterior tibialis tendon release, modifier 22, callous mendoza(Right) - Belén Urban MD Occupational Therapy Treatment Note M2 OT-IP Current Condition Start: 05/31/24 13:41 Freq: Status: Active Protocol: Document 05/31/24 13:42 [facility] (Rec: 05/31/24 14:04 [facility] [id number]) Occupational Therapy Current Condition Current Condition Evaluation Date 05/31/24 Treatment Diagnosis Right ankle fusion Diagnosis Onset Date 05/30/24 Weight Bearing Status Weight Bearing Status Non-Weight Bearing Allowed Weight Bearing Amount (enter % NWB for RLE, surgeon does or #) (%) write in chart can touch down for balance- pt unable to follow to to do NWB. M3 OT- IP Subjective and Pain Start: 05/31/24 13:41 Freq: Status: Active Protocol: Document 06/01/24 10:50 [facility] (Rec: 06/01/24 11:02 [facility] [id number]) OT- Subjective Occupational Therapy Visit Type Type Treatment Note Visit Start Time 10:20 Visit Stop Time 10:47 Occupational Therapy Visit Comments Patient Comments Pt agreed to try to stand up and insists that she will be able to use the crutches. Patient/Caregiver Goals To go home, but now realizes will need skilled rehab. OT Pain Assessment Pain When Pain Assessed During Mobility Pain Present Pain Present Pain Reported Location Right Hip Pain Behaviors Facial Grimacing,Holding Area M4 OT- IP ADL's Start: 05/31/24 13:41 Freq: Status: Active Protocol: Document 06/01/24 10:50 [facility] (Rec: 06/01/24 11:02 [facility] [id number]) OT HLV-Laba-Wltsqeo General Evaluation Self-Feeding Ability Independent OT ADL-Grooming General Evaluation Grooming Ability Standby Assistance Areas Needing Assistance Retrieving/Set-up of Grooming Items Comments OT Grooming Comments Set-up while seated. OT ADL-Dressing General Eval Lower Body Dressing Ability Total Assistance Areas Needing Assistance Socks,Shoes OT ADL-Toileting General Evaluation Toileting Ability Total Assistance Areas Needing Assistance Empty Catheter or Colostomy OT ADL-Bathing Comments OT Bathing Comments Sponge bath more appropriate at this time. M5 OT- IP IADL's Start: 05/31/24 13:41 Freq: Status: Active Protocol: Document 05/31/24 13:42 [facility] (Rec: 05/31/24 14:04 [facility] [id number]) OT-Instrumental Activities of Daily Living Home Safety Awareness Home Safety Comments Pt is a bit impulsive and needing cues to slow down. At this time pt will need assist for all needs. M6 OT- IP Functional Cognition Start: 05/31/24 13:41 Freq: Status: Active Protocol: Document 06/01/24 10:50 [facility] (Rec: 06/01/24 11:02 [facility] [id number]) Cognitive Factors Limiting Selfcare Function Cognitive Ability Level of Alertness Alert,Confusional State Cognitive Comments Cognitive Assessment Comments Pt is a bit anxious and having difficulty to comprehend how to use crutches, even though she insists she will be able to use them better than the FWW. M7 OT- IP Mobility and Balance Start: 05/31/24 13:41 Freq: Status: Active Protocol: Document 06/01/24 10:50 [facility] (Rec: 06/01/24 11:02 [facility] [id number]) OT-Transfer Assessment Sit to and From Stand Sit to and from Stand Maximum Assistance,2 Person Assistance Comments Mobility Comments MAXA X 2 to attempt to stand up and not able to stand all the way without putting weight on her RLE. Also attempted squat pivot transfer to the left and pt unable to complete as having too much pain with her left knee as well. OT- Balance Assessment Sitting Balance and Reactions Static Sitting Balance Ability Normal Dynamic Sitting Balance Ability Good Standing Balance and Reactions Static Standing Balance Ability Poor Dynamic Standing Balance Ability Poor M9 OT- IP Assessment and Plan Start: 05/31/24 13:41 Freq: Status: Active Protocol: Document 06/01/24 10:50 [facility] (Rec: 06/01/24 11:02 [facility] [id number]) OT Summary Assessment and Plan Potential Rehabilitation Potential Good Analytic Complexity at Evaluation Moderate Summary OT Impairments Pain,Strength,Balance, Coordination,Functional Cognition,Functional Mobility, Self-Feeding,Grooming,Dressing ,Toileting,Bathing,Toilet Transfers,Shower Transfers, Activity Tolerance Progress Towards Goals Slow Progress due to Pain,Slow Progress due to Medical Issues,Slow Progress due to Activity Tolerance,Slow Progress due to Cognition Assessment Summary Pt still having difficulty to maintain RLE NWB and not able to stand at this time. Pt after getting a call from her sister now in agreement to go to skilled rehab. Touch base with pt's nurse for darien use for pt's transfers. Goals Self-Feeding Goal Independent Grooming Goal Independent Dressing Goal Minimal Assistance Toileting Goal Minimal Assistance Bathing Goal Minimal Assistance Toilet Transfer Goal Contact Guard Assistance Shower Transfer Goal Minimal Assistance Days to Meet Goals 30 Frequency of Treatment Other frequency 5x/week Treatment Plan OT Treatment Plan ADL Training,Functional Cognition Training,Functional Mobility,Patient/Family Education,Discharge Planning Other Treatment Recommendations and Next Transfer to drop arm commode Treatment Focus with sliding board with MOD A x2 Discharge Recommendations OT Discharge Recommendations SNF Rehab Transportation Needs at Discharge Wheelchair/Cabulance
--- NOTE | 2024-06-01 11:55 | PC.NURSE ---
1140 - Called to the room by Toby ANDRADE. Patient experiencing seizure-like activity as identified by facial grimace and twitching as well as twitching and spasmodic right hand/arm. Patient's states She will be alright. Activity lasted approximately 45 seconds. The patient then alert and able to respond verbally. States that she does experience seizures when she bites or chews funny. It depends on which way my tongue goes. Vital signs stable primary RN updated.
--- NOTE | 2024-06-01 14:13 | P.PN_ITS ---
Subjective Subjective Date Patient Seen: 06/01/24 Time Patient Seen: 14:13 Interval history: Pt sitting up in chair, comfortable. Franklin removed, has Purewick in place. Comfortable in terms of pain control. Says she has not spoken to anyone yet about rehab, but is amenable to going to SNF. Exam Vital Signs (past 8 hours): - 06/01/24 09:00 Temperature 98.5 F Pulse Rate 81 Respiratory Rate 16 Blood Pressure 130/66 Pulse Oximetry 95 Oxygen Flow Rate 0 Oxygen Delivery Method Room Air Oxygen Flow Rate 0 Narrative Exam Narrative: Pt able to wiggle toes, bend at knee, sensation to touch intact above and below splint. 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, left Unspecified hearing loss (10/26/11) Localization-related (focal) (partial) symptomatic epilepsy and epileptic syndromes with simple partial seizures, intractable, without status epilepticus Cerebral palsy Lateral epicondylitis of left elbow Thyroid cancer Leukocytopenia, unspecified Sigmoid volvulus Meningitis Sprain of right thumb Surgical History (Updated 05/28/24 @ 14:55 by Kimberly Oneill RN) 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) S/P colon resection Hx of partial adrenalectomy (~12/2005) H/O right wrist surgery (~2012) History of arthroplasty of right knee History of total left hip arthroplasty Status post delivery Status post knee surgery Social History household members: spouse and family Smoking Status: Former smoker alcohol intake: current Assessment & Plan Post-op Assessment and plan (1) Cavovarus foot, congenital: Assessment and Plan narrative: 1) Pt needs to maintain NWB to toe-touch only for balance on RLE x 10-12 weeks. Because of this, she will need further rehab training prior to going home. Per CM notes, plan is for [facility] tomorrow. 2) Continue aspirin 325mg daily for VTE prophylaxis. 3) Continue multimodal pain control w/ APAP, celecoxib, and oxycodone. Postoperative Procedures: Procedures Operation Date: 05/30/24 11:15 Actual Procedure Side Surgeon p RIGHT hindfoot fusion (triple arthrodesis) Right Belén Urban MD s Tendon Achilles lengthening, 1st TMT fusion, posterior tibialis tendon release, modifier 22, callous mendoza Right Belén Urban MD Postoperative day: 2
--- NOTE | 2024-06-01 14:30 | PT.IPTN ---
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) Surgery Performed Operation Date: 05/30/24 11:15 Actual Procedures p RIGHT hindfoot fusion (triple arthrodesis)(Right) - Belén Urban MD s Tendon Achilles lengthening, 1st TMT fusion, posterior tibialis tendon release, modifier 22, callous mendoza(Right) - Belén Urban MD Physical Therapy Treatment Note M2 PT-IP Current Condition Start: 05/31/24 08:01 Freq: NEEDED Status: Active Protocol: Document 05/31/24 08:07 MB (Rec: 05/31/24 09:12 MB [id number]) Physical Therapy Current Condition Current Condition Evaluation Date 05/31/24 Treatment Diagnosis R ankle fusion M3 PT-IP Subjective Start: 05/31/24 08:01 Freq: NEEDED Status: Active Protocol: Document 06/01/24 14:30 AB (Rec: 06/01/24 15:42 AB [id number]) Subjective Physical Therapy Visit Type Type Treatment Note Visit Start Time 14:30 Visit Stop Time 14:45 Number of GROCERY CLERK Visits 0 Physical Therapy Visit Comments Patient Comments agreeable to do PT Therapy Pain Assessment Pain Present Pain Present Denied Pain M4 PT-IP Mobility and Gait Start: 05/31/24 08:01 Freq: NEEDED Status: Active Protocol: Document 06/01/24 14:30 AB (Rec: 06/01/24 15:42 AB [id number]) PT-Transfer Assessment Sit to and From Stand Sit to and from Stand Maximum Assistance,2 Person Assistance,Use of Upper Extremities Equipment Transfer Assistive Device Gait Belt,Front Wheeled Walker Orthotic/Prosthetic Devices or Brace: No Comments Mobility Comments pt sitting on the chair and agreeable to do PT. pt easily gets anxious and needed reassurance. educated pt on NWB on RLE. pt completed sit to stand max Ax 1-2 and max cues. needed assistance to maintain NWB on RLE initially but after cueing able to maintain NWB in standing for ~ 3 min but needed constant cues to maintain NWB. pt sat back on chair. c/o feeling uncomfortable due to constipation. pt wanting to get a suppository. nurse aware . pt wants to stay seated on the chair. positioned pt on the chair. call light and table placed within reach. refused further activities. M5 PT-IP Objective Assessments Start: 05/31/24 08:01 Freq: NEEDED Status: Active Protocol: Document 05/31/24 08:07 MB (Rec: 05/31/24 09:12 MB [id number]) Orientation Orientation/Cognition Level of Alertness Alert Orientation Name,Age,Birthday,Month,Date, Year,Day of Week,Place, Situation Language Function Ability No Deficits Noted Safety Awareness Decreased Safety Awareness Comments Decreased information provided by pt about baseline. She has occ writhing type movements of right greater than left hand/arm and pants/whimpers with movement rather than making verbalizations Gross Range of Motion Upper Extremity ROM Impairments Pt reports she gets injections in left elbow and wrist every few months from Dr. Olivera Lower Extremity ROM Assessment Right Impaired Impairments Right ankle in cast Strength Lower Extremity Strength Assessment Right Impaired Coordination Assessment Assessment Coordination Comments Writhing-type movements in B UEs with scooting to EOB Sensation Assessment Comments Sensation Comments Pt reports she is getting tingling in right toes this a. m. M6 PT-IP Treatment Start: 05/31/24 08:01 Freq: NEEDED Status: Active Protocol: Document 06/01/24 14:30 AB (Rec: 06/01/24 15:42 AB [id number]) Physical Therapy Treatment Education Education Provided Safety M7 PT-IP Assessment and Plan Start: 05/31/24 08:01 Freq: NEEDED Status: Active Protocol: Document 06/01/24 14:30 AB (Rec: 06/01/24 15:42 AB [id number]) PT Summary Assessment and Plan Potential Rehabilitation Potential Fair Summary Impairments Pain,ROM,Strength,Balance, Coordination,Sensation,Tone, Cognition,Bed Mobility, Transfers,Gait,Activity Tolerance Progress Towards Goals Slow Progress due to Medical Issues,Slow Progress due to Activity Tolerance,Slow Progress - Other Assessment Summary pt requiring max A x 1-2 for sit to stand and needed constant cue to maintain NWB on RLE. pt will require 24/7 assist at home and will benefit from SNF rehab. will continue to assess. Goals Bed Mobility Goal Independent Transfer Goal Standby Assistance,Front Wheeled Walker Gait Goal Standby Assistance,Front Wheel Walker Gait Distance 25 Other Goals Pt will ascend and descend 2 steps with left rail ascend or bumping up steps with no more than CGA to allow safe home entrance. Days to Meet Goals 5 Frequency of Treatment Other frequency 1-2x/day Treatment Plan Physical Therapy Treatment Plan Bed Mobility Training,Transfer Training,Gait Training, Therapeutic Exercise,Balance Retraining,Post Op Education, Discharge Planning,Hot or Cold Pack,Neuromuscular Re-ed, Coordination Retraining,Manual Therapy Weight Bearing Status Weight Bearing Status Non-Weight Bearing Allowed Weight Bearing Amount (enter % RLE NWB to TDWB or #) (%) Recommendations To Nursing Amount of Assist Needed Mechanical Lift Discharge Recommendations PT Discharge Recommendations SNF Rehab Transportation Needs at Discharge Wheelchair/Cabulance
[2024-06-01] MEDS: OXcarbazepine 150 MG TABLET 900 MG PO (20:44)
[2024-06-01] MEDS: SENNOSIDES 8.6 MG TABLET 17.2 MG PO (20:45)
[2024-06-01 21:00] VITALS: BP 122/80; PULSE 99; RESP 18; TEMP 37; O2SAT 99
[2024-06-02] MEDS: LEVOTHYROXINE 125 MCG TABLET 250 MCG PO (05:18)
[2024-06-02] MEDS: OXYCODONE IR 5 MG TABLET PO (05:52)
[2024-06-02 08:00] VITALS: BP 135/66; PULSE 66; RESP 16; TEMP 36.4; O2SAT 95
[2024-06-02] MEDS: CELECOXIB 200 MG CAPSULE PO (08:40)
[2024-06-02] MEDS: OXcarbazepine 150 MG TABLET 600 MG PO (08:41)
[2024-06-02] MEDS: ASPIRIN EC 325 MG TABLET PO (09:03)
[2024-06-02] MEDS: ACETAMINOPHEN 325 MG TABLET 650 MG PO (09:03)
--- NOTE | 2024-06-02 09:18 | P.DS_ITS ---
History of Present Illness History of Present Illness Date Patient Seen: 06/02/24 Time Patient Seen: 09:19 Chief complaint: Right Ankle Fusion/Achilles Tendon Lengthening Narrative: Operative Date/Time/Diagnoses Date of procedure: 05/30/24 Time of procedure: 16:32 Pre-op diagnosis: Right cavovarus foot deformity Achilles contracture Post-op diagnosis: same Procedure & Clinicians Procedure: Reconstruction right cavovarus foot deformity 1. CPT code triple arthrodesis CPT code 96695 including talonavicular joint calcaneocuboid joint and subtalar joint 2. Calcaneus osteotomy CPT code 25619 modifier 59 for separate site of surgery separate incision for lateralizing and the wire calcaneal osteotomy 3. First tarsometatarsal arthrodesis CPT code 36596 right 4. Percutaneous tendo-Achilles lengthening under general anesthesia CPT code 57093 separate site separate incisions modifier 59 for Achilles contracture 5. Released posterior tibialis tendon CPT code 71775 6. Reduction callus single at 5th metatarsal head separate site CPT code 01185 modifier 59 This procedure was performed with a modifier 22, for increased level of complexity multiple sutures required to correct severe cavovarus deformity taking approximately twice as long standard for correct procedure. Required separate additional osteotomies in addition to the triple arthrodesis. As well as additional release of tendinous structures including the posterior tibialis tendon release in order to facilitate correction Same procedure as scheduled: Yes Discharge Providers Provider Date of admission: 05/30/24 13:02 Discharge Date: 06/02/24 Primary care physician: Apolinar Monsivais DO Consults: 05/29/24 12:27 Consult to Anesthesiology Routine Comment: Consulting Provider: Anesthesiologist Reason for consultation: Surgeon requested re: Seizure Disorder 05/30/24 16:37 Consult to Discharge Planning Routine Comment: Consult to Occupational Therapy Evaluate & Treat Comment: Physician Instructions: Evaluate and treat Consult to Physical Therapy Evaluate & Treat Comment: nwbright foot can touchdown for balance Physician Instructions: Evaluate and Treat Discharge provider: Radha Chatman PA-C Summary Hospital Course Discharge Diagnosis: Right cavovarus foot deformity, Achilles contracture; s/p triple arthrodesis of the hindfoot and Achilles lengthening Hospital Course: Ms De Leon's progress was remarkable for slow progress w/ PT and the need for transfer to SNF for further rehab prior to going home. She continued to need maximum assistance with transfers and frequent cuing to remain NWB on her right leg throughout her stay. On the morning of POD# 3, she was feeling well. She was eating and voiding without difficulty and her pain was well-controlled with oral medication. Exam Vital Signs (past 8 hours): - 06/02/24 08:00 Temperature 97.5 F L Pulse Rate 66 Respiratory Rate 16 Blood Pressure 135/66 Pulse Oximetry 95 Oxygen Flow Rate 0 Oxygen Delivery Method Room Air Oxygen Flow Rate 0 Narrative Exam Narrative: Pt able to wiggle toes, sensation intact above and below splint. Denies any area of tightness or discomfort around splint. 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, left Unspecified hearing loss (10/26/11) Localization-related (focal) (partial) symptomatic epilepsy and epileptic syndromes with simple partial seizures, intractable, without status epilepticus Cerebral palsy Lateral epicondylitis of left elbow Thyroid cancer Leukocytopenia, unspecified Sigmoid volvulus Meningitis Sprain of right thumb Surgical History (Updated 05/28/24 @ 14:55 by Kimberly Oneill RN) 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) S/P colon resection Hx of partial adrenalectomy (~12/2005) H/O right wrist surgery (~2012) History of arthroplasty of right knee History of total left hip arthroplasty Status post delivery Status post knee surgery Social History household members: spouse and family Smoking Status: Former smoker alcohol intake: current Discharge Assessment & Plan Assessment and Plan Assessment: Right cavovarus foot deformity, Achilles contracture; s/p triple arthrodesis of the hindfoot and Achilles lengthening Plan of Treatment: Discharge to SNF. Continue nonweightbearing x 10-12 weeks postop, toe-touch only for balance. Aspirin 325mg daily for VTE prophylaxis. Follow up in office as scheduled, at which time splint will be removed and sutures will be evaluated for possible removal. Discharge Plan Discharge Plan Patient Disposition: SNF Transfer to: [facility] Discharge orders & Medications Prescriptions: New acetaminophen 325 mg Tablet 650 mg PO Q6H PRN (Reason: Fever/Mild Pain (1-3)) Qty: 90 0RF aspirin 325 mg Tablet,Delayed Release (Dr/Ec) 325 mg PO DAILY Qty: 90 0RF polyethylene glycol 3350 17 gram Powder In Packet 17 g PO DAILY Qty: 100 0RF ondansetron 4 mg Tablet,Disintegrating 4 mg PO Q6H PRN (Reason: Nausea And Vomiting) Qty: 30 0RF oxycodone 5 mg Tablet 5 mg PO Q4-6H PRN (Reason: Pain, Moderate (4-6)) Qty: 30 0RF Continued levothyroxine 125 mcg tablet See Rx Instructions .ROUTE .COMPLEX Qty: 180 3RF Dose Instruction: take 2 tablets by mouth once daily Rx Instructions: take 2 tablets by mouth once daily carbamazepine 200 mg tablet See Rx Instructions .ROUTE .COMPLEX 90 Days Qty: 210 11RF Dose Instruction: Take 2 tabs every morning, 2 tabs at noon, and 3 tabs at bedtime. Rx Instructions: Take 2 tabs every morning, 2 tabs at noon, and 3 tabs at bedtime. celecoxib 200 mg capsule See Rx Instructions .ROUTE .COMPLEX Qty: 90 3RF Dose Instruction: take 1 capsule by mouth once daily Rx Instructions: take 1 capsule by mouth once daily Changed lorazepam 0.5 mg tablet 0.25 mg PO BID PRN (Reason: anxiety) Qty: 30 0RF Follow up/Referrals: Belén Urban MD [Physician] - 06/22/24 11:20 am ([facility] office in [place]) Apolinar Monsivais DO [Primary Care Provider] - Diet/Activity/Treatments Diet: Diet as Tolerated Activity: Non-weight bearing to the RLE, toe touch for balance only. This will be maintained for 10-12 weeks postop. Skin/Wound/Dressing Care Report to your healthcare provider any signs of infection, such as:: chills, fever, night sweats, unusual drainage and unusual redness Dressing: Keep dressing and splint clean and dry. If it feels too tight, the SJ wrap can be loosened and the cotton padding in the front can be loosely torn/cut to provide more room. Splint will stay in place until pts f/u in office. [facility] Reason for rehabilitation: Post-operative therapy Rehab type: Physical therapy and Occupational therapy Visit Report/Discharge Packet Instructions: DI for Prescription Opioid Use Stand Alone Forms: Patient Portal/API, Surgery Discharge Discharge Data Primary Care Provider: Apolinar Monsivais
--- NOTE | 2024-06-02 10:38 | CM.DPC ---
DCP Discharge SNF Per Ortho PA, pt medically stable to d/c to SNF today and discharge completed and no identified barriers to discharge. SW met bedside with pt in the morning and provided her Medicare Message and pt confirms she remains agreeable to d/c to [facility] today before safe return home. YONG faxed [facility], signed med list, scripts, d/c summary, MD orders to [facility] to review and they confirm they can transport around 1130 today. YONG updated RN, first sampler and [facility]. Plan: Patient to d/c to [facility] today via facility van around 1130 before safe return home. VINNIE Heaton
--- NOTE | 2024-06-02 11:49 | PC.NURSE ---
Pt discharged to [facility] at 1139, escorted off floor in wheelchair accompanied by facility designee from [facility]. IV removed, discharge paperwork sent with patient to facility, report called to Mary ([phone]) at [phone]. Patient left the floor with all belongings.
== END 2024-06-02 11:58 | DRG 502 ==
LOC: OR 05-31 11:01 → AC 05-31 11:01
PROVIDERS: Admitting Provider Orthopaedic Surgery Foot and Ankle Surgery; PCP Family Medicine; Referring Provider Orthopaedic Surgery Foot and Ankle Surgery; Visit Provider Orthopaedic Surgery Foot and Ankle Surgery
PROC: 0LNN0ZZ Release Right Lower Leg Tendon, Open Approach (ICD-10-PCS; principal; 2024-05-30 11:15)
PROC: 0LNN0ZZ Release Right Lower Leg Tendon, Open Approach (ICD-10-PCS; CPT 27685; 2024-05-30 11:15)
DX: Q66.11 Congenital talipes calcaneovarus, right foot (principal); M67.01 Short Achilles tendon (acquired), right ankle; S92.351S Displaced fracture of fifth metatarsal bone, right foot, sequela; M19.071 Primary osteoarthritis, right ankle and foot; L84 Corns and callosities; E03.9 Hypothyroidism, unspecified; G80.9 Cerebral palsy, unspecified; G40.909 Epilepsy, unspecified, not intractable, without status epilepticus; X58.XXXS Exposure to other specified factors, sequela; Z87.891 Personal history of nicotine dependence
CPT/HCPCS: 36415; 73630; 76000; 80048; 85025; 97161; 97166; 97530; 97533; C1713; J0134; J0171; J0690; J1100; J2250; J2405; J2704; J3010

== ENCOUNTER → 2024-10-23 09:59 | Outpatient (CLI) | payer MEDICARE, SELFPAY ==
[2024-05-30 17:12] VITALS: BMI 29.5
--- NOTE | 2024-10-23 10:03 | DI.RAD.S_ITS ---
PROCEDURE: XR KNEE LT 3V INDICATIONS: djd TECHNIQUE: 3 views of the knee were acquired. COMPARISON: None. FINDINGS: Bones: There are no osseous abnormalities. Joints: Mild tibiofemoral degeneration appreciated . Severe patellofemoral degeneration noted with marked lateral patellar subluxation Small effusion Soft tissues: Normal IMPRESSION: Marked lateral patellar subluxation. Severe patellofemoral degeneration. Mild tibiofemoral degeneration Dictated by: Arthur Blas M.D. on 10/24/2024 at 10:09 Approved by: Arthur Blas M.D. on 10/24/2024 at 10:10
== END ==
PROVIDERS: PCP Family Medicine; Referring Provider Physical Medicine & Rehabilitation; Visit Provider Physical Medicine & Rehabilitation
DX: M17.12 Unilateral primary osteoarthritis, left knee (principal); S83.012A Lateral subluxation of left patella, initial encounter
CPT/HCPCS: 73562